=== PATIENT | male | born 1935 | race Caucasian/White ===

== ENCOUNTER → 2016-10-04 | Outpatient (CLI) | payer MEDICARE ==
--- NOTE | 2016-10-04 12:26 | PN ---
DATE OF SERVICE: 10/04/2016 An 81-year-old gentleman who has been [facility] for [facility] of obstructive sleep apnea-hypopnea syndrome. According to patient and his , he is able to use machine every night for the whole night without any significant problems. I checked his CPAP unit. CPAP pressure is 10 cm of water. Usage is 24 out of 30 nights for more than 4 hours. No leak from the mask. Apnea-hypopnea index only 0.8, which is perfect. At the same time, [place] Sleepiness Scale increased to 19 and patient sometimes wakes up from sleep and may have difficulties to fall asleep again. He is on treatment with Mirapex also at bedtime. MEDICATIONS: Prilosec, Plavix, Janumet, Coreg, losartan, Uroxatral, finasteride, Fibercon, Ocuvite with lutein, iron supplement, Claritin, Tessalon, simvastatin, folic acid, aspirin, Christine, multivitamins, Mirapex, Zantac, melatonin, megestrol, nasal spray with ipratropium, bromide, and fluticasone ( ), Dulera, Combigan, Lumigan. During physical exam, patient in no distress. BP 151/79, HR 70, RR 16. Height 5, 7. Weight 161, which is 2 pounds less than during titration in 2015, BMI 25. Neck 15 inches in circumference. Temp is 97.8. Oxygen saturation at room air 98%. Patient is legally blind, right eye prosthesis. LUNGS: Few wheezing. HEART: S1, S2, regular. ABDOMEN: Obese, soft, nontender. EXTREMITIES: 1 to 2+ bilateral ankle edema. IMPRESSION: 1. Obstructive sleep apnea-hypopnea syndrome on control with CPAP at 10 cm of water. Patient demonstrated good compliance with treatment, benefiting from treatment. 2. Hypertension. 3. Coronary artery disease, status post stent insertion, 4. 1 to 2+ swelling of the legs, possible congestive heart failure. 5. Nocturia. 6. Diabetes mellitus. 7. History of iron deficiency anemia. 8. History of kidney stones. 9. Acid reflux. 10. 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 11. History of benign prostatic hypertrophy. PLAN: 1. Continue treatment with CPAP every night for the whole night. 2. Watching weight, present body mass index normal. 3. Sleep hygiene with regular time in bed for at least 8 hours[address] Patient [address] not drive. 5. Prescription of all necessary CPAP supplies, including mask, tubes, filters. He is getting his supplies regularly. Thank you very much for allowing me to participate in the management of your patient. Sincerely, Alvino Patel MD, PhD, FAASM. Diplomat of [employer], Sleep Medicine Board by [employer]sole [employer] Snipping Machine Operator of [facility] [place]
== END | disposition home or self-care (01) ==
LOC: SLEEP 10:57
PROVIDERS: ATTEND Internal Medicine
DX: G47.33 Obstructive sleep apnea (adult) (pediatric) (principal); I10 Essential (primary) hypertension; I25.10 Atherosclerotic heart disease of native coronary artery without angina pectoris; Z94.4 Liver transplant status; M79.89 Other specified soft tissue disorders; E11.9 Type 2 diabetes mellitus without complications; K21.9 Gastro-esophageal reflux disease without esophagitis; Z79.899 Other long term (current) drug therapy; Z79.84 Long term (current) use of oral hypoglycemic drugs; N40.0 Benign prostatic hyperplasia without lower urinary tract symptoms; Z87.442 Personal history of urinary calculi; D64.9 Anemia, unspecified

== ENCOUNTER → 2016-10-17 | Outpatient (CLI) | payer MEDICARE ==
--- NOTE | 2016-10-17 17:00 | CT ---
EXAMINATION TYPE: CT chest wo con DATE OF EXAM: 10/17/2016 COMPARISON: NONE HISTORY: Interstitial lung disease CT DLP: 170 mGycm, Automated exposure control for dose reduction was used. CONTRAST: None TECHNIQUE: Axial images were obtained at 1 mm thick sections at 10 mm intervals. This will limit po rtions of the examination which may not be visualized within the [id number]. Images were obtained in the prone and supine views. Beam hardening artifact from a right shoulder prosthesis causes some limitation. FINDINGS: Portion of the thyroid visualized is normal. There is some interstitial thickening at the left lung base. This may have slight improvement on the prone images suggest a component of atelectasis involve. No enlarged mediastinal or hilar adenopathy is evident. The ascending aorta diameter at the level o f the main pulmonary artery is 4.0 cm. The main pulmonary artery diameter at the bifurcation is 3.4 cm. Coronary artery calcification is present. Limited CT sections are obtained through the upper abdomen. Nonobstructing renal stones are present o n the right. IMPRESSIONS: 1. Interstitial lung changes at the left base greater on the supine imaging. 2. Right nonobstructing renal stones
== END | disposition home or self-care (01) ==
LOC: RADCTMAIN 13:01
PROVIDERS: ATTEND Internal Medicine Critical Care Medicine
DX: J84.9 Interstitial pulmonary disease, unspecified (principal); Z88.5 Allergy status to narcotic agent
CPT/HCPCS: 71250

== ENCOUNTER 2016-11-08 10:06 | Day surgery (SDC) | payer MEDICARE ==
[2016-11-05 12:04] VITALS: BMI 22.4
[~2016-11-08 10:06] MED LIST: ALBUTEROL NEB (CONC) 2.5 MG/0.5 ML INHALATION ONE; ATROPINE SULFATE 0.4 MG/ML 1 ML VIAL IM ONE; LACTATED RINGERS 1,000 ML IV ONE; LACTATED RINGERS 1,000 ML IV SCH; LIDOCAINE 2% (PF) 20 MG/ML 10ML INHALATION ONE
[2016-11-08 10:29] VITALS: TEMP 98.3
[2016-11-08] MEDS ORDERED: LIDOCAINE 1% 20 ML VIAL (10MG/ML) FOR IV START INTRADERMA ONE (10:48)
[2016-11-08 10:51] LABS: Glucose,Whole Blood 122 mg/dL (75-99)
[2016-11-08] MEDS ORDERED: GLYCOPYRROLATE 0.2 MG/ML 2 ML VIAL ONE (11:34)
[2016-11-08] MEDS ORDERED: MIDAZOLAM 2 MG/2 ML VIAL ONE (11:34)
[2016-11-08] MEDS ORDERED: LIDOCAINE 1% INJ 10MG/ML (20 ML MDV) ONE (11:34)
[2016-11-08] MEDS ORDERED: fentaNYL (PF) 50 MCG/ML 2 ML AMP ONE (11:34)
[2016-11-08] MEDS ORDERED: PROPOFOL 10 MG/ML 20 ML VIAL IV ONE (11:34)
[2016-11-08] MEDS ORDERED: KETAMINE 10 MG/ML 20 ML VIAL ONE (11:34)
[2016-11-08] MEDS ORDERED: LIDOCAINE 2% INJ 20 MG/ML INTRATRACH ONE ×2 (11:39→11:42)
[2016-11-08 12:31] VITALS: BP 145/91; PULSE 66; RESP 18
[2016-11-08 12:35] LABS: Glucose,Whole Blood 119 mg/dL (75-99)
[2016-11-08 16:58] LABS: RBC, Body Fluid 9100 /uL
[2016-11-08 17:28] LABS: RBC, Body Fluid 1230 /uL
--- NOTE | 2016-11-09 07:53 | PCN ---
DATE OF PROCEDURE: PROCEDURE: Bronchoscopy, airway examination, therapeutic lavage, BAL. We did BAL in the right middle lobe and also BAL left lower lobe, 2 separate containers. PREOPERATIVE DIAGNOSIS: Pneumonia. POSTOPERATIVE DIAGNOSIS: Pneumonia. The stable cleaner, Carla Perdomo CRNA gave unconscious sedation with general anesthesia. The patient's procedure took place in Room #3. There was informed consent. There was universal timeout. After the patient was adequately sedated and being fully monitored, the bronchoscope was inserted through the right nostril. It passed through the right nasopharynx into the oropharynx. The hypopharynx was identified and topicalized. The hypopharyngeal structures including in the anterior commissures, true cords, false cords, arytenoids, piriform sinuses, right and left vallecula and epiglottis all appear normal. The papilla on the posterior tongue were more prominent. After topicalization, bronchoscope was pushed through the glottic opening into the trachea. Trachea appeared normal. Tracheal jeni was sharp. There were some secretions noted throughout the trachea. They were suctioned. There were no masses or tumors within the trachea. Tracheal jeni was sharp. Right and left mainstem were topicalized. The right upper lobe was bifurcated. The segments looked normal. The right middle lobe had 2 segments and was normal and the right lower lobe had 4 segments as opposed to 5. There was a medial basal bronchopulmonary segment of the right lower lobe missing, but all the segments, otherwise, look normal. There was no dominant mass. There were some secretions. There was mild bronchitis. There was no bleeding. On the left side, the left upper lobe and its 2 segments, the lingula and its 2 segments, and the left lower lobe and its 4 segments all appeared relatively normal. Likewise, there was diffuse bronchitis. There were secretions noted throughout. There was no bleeding. There was no dominant mass or tumor. We did 2 different BAL samples one in the right middle lobe and one in the left lower lobe. The patient tolerated the procedure well. There was no bleeding. Additional secretions were removed with the assistance of saline lavage. The patient tolerated the procedure well. Bronchoscope was withdrawn. He will be recovered. No additional recommendations are made. I will talk to the family.
== END 2016-11-08 12:48 | disposition home or self-care (01) ==
LOC: ORWHC2ENDO 10:06
PROVIDERS: ATTEND Internal Medicine Critical Care Medicine
DX: J18.9 Pneumonia, unspecified organism (principal); J44.9 Chronic obstructive pulmonary disease, unspecified; I05.9 Rheumatic mitral valve disease, unspecified; Z87.891 Personal history of nicotine dependence; I10 Essential (primary) hypertension; E78.5 Hyperlipidemia, unspecified; Z95.5 Presence of coronary angioplasty implant and graft; J44.1 Chronic obstructive pulmonary disease with (acute) exacerbation; Z79.84 Long term (current) use of oral hypoglycemic drugs; Z79.02 Long term (current) use of antithrombotics/antiplatelets; Z79.82 Long term (current) use of aspirin; Z79.51 Long term (current) use of inhaled steroids; Z79.52 Long term (current) use of systemic steroids; Z79.899 Other long term (current) drug therapy; Z88.5 Allergy status to narcotic agent
CPT/HCPCS: 94640; 88108; 88305; 89050; 87252; 87070; 87205; 87116; 87102; 87077; 87186; 87206; 31624; J2001 ×3; J2250; J0461; J3010; J2704; 87496; 87498; 87502; 87529; 87798

== ENCOUNTER 2016-12-27 16:27 | Emergency (ER) | payer MEDICARE ==
[2016-12-27 17:26] LABS: ALT 23 U/L (21-72); AST 64 U/L (17-59); Alkaline Phosphatase 59 U/L (38-126); Anion Gap 12 mmol/L; Blood Urea Nitrogen 25 mg/dL (9-20); Carbon Dioxide 21 mmol/L (22-30); Chloride 102 mmol/L (98-107); Creatine Kinase 94 U/L (55-170); Glucose 117 mg/dL (74-99); Non-African American GFR(MDRD) >60 (>60 ml/min/1.73 sqM); Sodium 135 mmol/L (137-145); Total Bilirubin 1.3 mg/dL (0.2-1.3); Total Protein 6.9 g/dL (6.3-8.2)
[2016-12-27 17:35] LABS: Potassium 6.4 mmol/L (3.5-5.1)
[2016-12-27 17:45] LABS: Anisocytosis Slight; Aty Lym Flag Slight; CH 25.9; CHCM 30.4; HCT 29.2 % (39.0-53.0); HDW 3.01; Hypochromasia Marked; MCH 26.2 pg (25.0-35.0); MCHC 30.8 g/dL (31.0-37.0); MCV 85.2 fL (80.0-100.0); Mean Platelet Volume 9.6; RBC 3.43 m/uL (4.30-5.90); RDW 17.9 % (11.5-15.5); WBC 6.2 k/uL (3.8-10.6); WBC (Perox) 6.54
[2016-12-27 18:03] LABS: Add Differential Manual Differential
[2016-12-27 18:06] LABS: Nucleated Red Blood Cells 0 /100 WBC (0-0); Total Cells Counted 100
[2016-12-27 18:14] LABS: Vitamin B12 475 pg/mL
--- NOTE | 2016-12-27 18:28 | ED ---
General Adult HPI - General Chief complaint: Recheck/Abnormal Lab/Rx Stated complaint: BROUGHT OVER FROM CT FOR ABNORMAL BLOODWORK Time Seen by Provider: 12/27/16 18:19 Source: patient, RN notes reviewed Mode of arrival: wheelchair Limitations: no limitations - History of Present Illness Initial comments: 81-year-old male presents to the emergency department for abnormal blood work. Patient was here due to the patient having multiple falls over the last few weeks and off balance. He went in for a CAT scan. Blood work and he was found to have a high potassium so he was sent over to the emergency department. Patient has no complaints he has no pain at this time. They state that the head injury was 2 weeks ago. They state that the doctors currently working up him for possible Parkinson's causing The falls they just wanted to rule out any acute head injury. The patient has no headache at this time. He denies any chest pain or shortness of breath. - Related Data Home Medications Medication Instructions Recorded Confirmed Alfuzosin HCl [Uroxatral] 10 mg PO DAILY 11/27/13 11/08/16 Aspirin [Aspirin] 81 mg PO W/SUPPER 11/27/13 11/08/16 Bimatoprost [Lumigan] 1 drop LEFT EYE HS 11/27/13 11/08/16 Brimonidine Tartrate/Timolol 1 drop LEFT EYE BID 11/27/13 11/08/16 [Combigan Eye Drops] Carvedilol [Coreg] 12.5 mg PO BID 11/27/13 11/08/16 Folic Acid 1 mg PO W/SUPPER 11/27/13 11/08/16 Simvastatin [Zocor] 10 mg PO MOWEFR 11/27/13 11/08/16 Losartan [Cozaar] 25 mg PO DAILY 12/14/13 11/08/16 Magnesium Oxide [Mag-Ox] 400 mg PO DAILY PRN 12/14/13 11/08/16 Potassium Chloride [K-Tab] 10 meq PO DAILY PRN 12/14/13 11/08/16 Clopidogrel [Plavix] 75 mg PO DAILY 06/04/14 11/08/16 Megestrol [Megace] 10 ml PO MOWEFR 06/04/14 11/08/16 Omeprazole [PriLOSEC] 20 mg PO AC-BRKFST 06/04/14 11/08/16 sitaGLIPtin PHOS/metFORMIN HCL 1 tab PO BID 06/04/14 11/08/16 [Janumet 50-500 mg Tablet] riTUXimab [Rituxan] 1 applicate IV DIRECTED 06/18/14 11/08/16 Finasteride [Proscar] 5 mg PO DAILY 04/18/15 11/08/16 Multivitamins, Thera [Multivitamin] 1 tab PO DAILY 06/16/15 11/08/16 Vits A,C,E/Lutein/Minerals 1 each PO DAILY 06/16/15 11/08/16 [Ocuvite with Lutein Tablet] Calcium Polycarbophil [Fibercon] 625 mg PO QAM 11/05/16 11/08/16 Epoetin Az [Procrit] 0 unit IJ DIRECTED 11/05/16 11/08/16 Ferrous Sulfate [Feosol] 2 tab PO DAILY 11/05/16 11/08/16 Furosemide [Lasix] 20 mg PO DAILY PRN 11/05/16 11/08/16 Melatonin 5 mg PO 199911/05/16 11/08/16 Pramipexole Di-HCl [Mirapex] 1 mg PO 199911/05/16 11/08/16 Ranitidine HCl [Zantac] 150 mg PO W/SUPPER 11/05/16 11/08/16 Allergies Allergy/AdvReac Type Severity Reaction Status Date / Time codeine AdvReac Nausea & Verified 12/27/16 18:14 Vomiting & Diarrhea Review of Systems ROS Statement: Those systems with pertinent positive or pertinent negative responses have been documented in the HPI. ROS Other: All systems not noted in ROS Statement are negative. 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, uses cane, inflammatory arthritis, gets edema ankles, chornic productive cough, rash on and off on arms and stomach, History of Any Multi-Drug Resistant Organisms: None Reported Past Surgical History: Adenoidectomy, Heart Catheterization With Stent, Joint Replacement, Tonsillectomy Additional Past Surgical History / Comment(s): right shoulder replacement, removal of rt eye(prosthesis used) Past Anesthesia/Blood Transfusion Reactions: No Reported Reaction Date of Last Stent Placement:: 03/2014 Past Psychological History: No Psychological Hx Reported Smoking Status: Former smoker - Past Family History Sister(s) Family Medical History: Cancer General Exam Limitations: no limitations General appearance: alert, in no apparent distress Head exam: Present: atraumatic, normocephalic, normal inspection Eye exam: Present: normal appearance, PERRL (Of the left), EOMI (Of the left the left) ENT exam: Present: normal exam, mucous membranes moist Neck exam: Present: normal inspection. Absent: tenderness, meningismus, lymphadenopathy Respiratory exam: Present: normal lung sounds bilaterally. Absent: respiratory distress, wheezes, rales, rhonchi, stridor Cardiovascular Exam: Present: regular rate, normal rhythm, normal heart sounds. Absent: rubs, gallop, clicks Neurological exam: Present: alert, oriented X3, CN II-XII intact, reflexes normal. Absent: motor sensory deficit Psychiatric exam: Present: normal affect, normal mood Skin exam: Present: warm, dry, intact, normal color. Absent: rash Course Vital Signs 12/27/16 12/27/16 12/27/16 18:14 18:51 19:11 Temperature 96.5 F L 97.9 F Pulse Rate 71 79 82 Respiratory 16 18 18 Rate Blood Pressure 178/81 172/83 174/103 O2 Sat by Pulse 99 98 96 Oximetry 12/27/16 19:25 Temperature 98.6 F Pulse Rate 85 Respiratory 18 Rate Blood Pressure 172/79 O2 Sat by Pulse 94 L Oximetry - Reevaluation(s) Reevaluation #1: 12/27/16 19:29 Patient's blood pressure was evaluated. It is elevated at this time. He is due for his nighttime blood pressure medications. This time family states they' ll take him in the home. We did discuss follow-up for his blood pressure. EKG Findings - EKG Comments: EKG Findings:: Sinus rhythm with marked sinus arrhythmia with the mature supraventricular complexes, left anterior fascicular block, ventricular rate 80 , UT interval 22, peak T waves nonobserved Medical Decision Making - Medical Decision Making 81-year-old male presents to the emergency Department chief complaint of hyperkalemia. At this time patient's repeat potassium is 4.7. EKG is no acute changes. There is blood and urine as well as the patient is anemic which are chronic findings according to family. We did reeducate him about follow-up on these initial lab findings there they stated they understood and they are given plan. Patient has no complaints this time. Scalp patient was does not show any acute intracranial process. This and the patient will be discharged home. All questions have been answered. - Lab Data Result diagrams: 12/27/16 16:55 12/27/16 18:46 Lab Results 12/27/16 12/27/16 12/27/16 Range/Units 16:55 16:55 18:46 WBC 6.2 (3.8-10.6) k/uL RBC 3.43 L (4.30-5.90) m/uL Hgb 9.0 L (13.0-17.5) gm/dL Hct 29.2 L (39.0-53.0) % MCV 85.2 (80.0-100.0) fL MCH 26.2 (25.0-35.0) pg MCHC 30.8 L (31.0-37.0) g/dL RDW 17.9 H (11.5-15.5) % Plt Count 318 (150-450) k/uL Neutrophils % (Manual) 59 % Lymphocytes % (Manual) 25 % Monocytes % (Manual) 16 % Neutrophils # (Manual) 3.66 (1.3-7.7) k/uL Lymphocytes # (Manual) 1.55 (1.0-4.8) k/uL Monocytes # (Manual) 0.99 (0-1.0) k/uL Nucleated RBCs 0 (0-0) /100 WBC Hypochromasia Marked Anisocytosis Slight Sodium 135 L (137-145) mmol/L Potassium 6.4 H* 4.7 (3.5-5.1) mmol/L Chloride 102 (98-107) mmol/L Carbon Dioxide 21 L (22-30) mmol/L Anion Gap 12 mmol/L BUN 25 H (9-20) mg/dL Creatinine 1.00 (0.66-1.25) mg/dL Est GFR (MDRD) Af Amer >60 (>60 ml/min/1.73 sqM) Est GFR (MDRD) Non-Af >60 (>60 ml/min/1.73 sqM) Glucose 117 H (74-99) mg/dL Calcium 9.0 (8.4-10.2) mg/dL Total Bilirubin 1.3 (0.2-1.3) mg/dL AST 64 H (17-59) U/L ALT 23 (21-72) U/L Alkaline Phosphatase 59 (38-126) U/L Creatine Kinase 94 (55-170) U/L Total Protein 6.9 (6.3-8.2) g/dL Albumin 4.6 (3.5-5.0) g/dL Vitamin B12 475 pg/mL TSH 0.701 (0.465-4.680) mIU/L Free T4 1.32 (0.78-2.19) ng/dL Urine Color Urine Appearance (Clear) Urine pH (5.0-8.0) Ur Specific Mckittrick (1.001-1.035) Urine Protein (Negative) Urine Glucose (UA) (Negative) Urine Ketones (Negative) Urine Blood (Negative) Urine Nitrite (Negative) Urine Bilirubin (Negative) Urine Urobilinogen (<2.0) mg/dL Ur Leukocyte Esterase (Negative) Urine RBC (0-5) /hpf Urine WBC (0-5) /hpf Ur Squamous Epith Cells (0-4) /hpf Urine Mucus (None) /hpf 12/27/16 Range/Units 18:46 WBC (3.8-10.6) k/uL RBC (4.30-5.90) m/uL Hgb (13.0-17.5) gm/dL Hct (39.0-53.0) % MCV (80.0-100.0) fL MCH (25.0-35.0) pg MCHC (31.0-37.0) g/dL RDW (11.5-15.5) % Plt Count (150-450) k/uL Neutrophils % (Manual) % Lymphocytes % (Manual) % Monocytes % (Manual) % Neutrophils # (Manual) (1.3-7.7) k/uL Lymphocytes # (Manual) (1.0-4.8) k/uL Monocytes # (Manual) (0-1.0) k/uL Nucleated RBCs (0-0) /100 WBC Hypochromasia Anisocytosis Sodium (137-145) mmol/L Potassium (3.5-5.1) mmol/L Chloride (98-107) mmol/L Carbon Dioxide (22-30) mmol/L Anion Gap mmol/L BUN (9-20) mg/dL Creatinine (0.66-1.25) mg/dL Est GFR (MDRD) Af Amer (>60 ml/min/1.73 sqM) Est GFR (MDRD) Non-Af (>60 ml/min/1.73 sqM) Glucose (74-99) mg/dL Calcium (8.4-10.2) mg/dL Total Bilirubin (0.2-1.3) mg/dL AST (17-59) U/L ALT (21-72) U/L Alkaline Phosphatase (38-126) U/L Creatine Kinase (55-170) U/L Total Protein (6.3-8.2) g/dL Albumin (3.5-5.0) g/dL Vitamin B12 pg/mL TSH (0.465-4.680) mIU/L Free T4 (0.78-2.19) ng/dL Urine Color Yellow Urine Appearance Clear (Clear) Urine pH 6.5 (5.0-8.0) Ur Specific Mckitt[place] 1.024 (1.001-1.035) Urine Protein 1+ H (Negative) Urine Glucose (UA) Negative (Negative) Urine Ketones Negative (Negative) Urine Blood Small H (Negative) Urine Nitrite Negative (Negative) Urine Bilirubin Negative (Negative) Urine Urobilinogen <2.0 (<2.0) mg/dL Ur Leukocyte Esterase Negative (Negative) Urine RBC 25 H (0-5) /hpf Urine WBC 2 (0-5) /hpf Ur Squamous Epith Cells <1 (0-4) /hpf Urine Mucus Rare H (None) /hpf Disposition Clinical Impression: Chronic anemia, Hematuria Disposition: HOME SELF-CARE Condition: Stable Instructions: Anemia (ED) Additional Instructions: Please use medication as discussed. Please follow up with family doctor if symptoms have not improved over the next two days. Please return to the emergency room if your symptoms increase or worsen or for any other concerns. Referrals: Kaitlin Hassan MD [Primary Care Provider] - 1-2 days Time of Disposition: 19:29
--- NOTE | 2016-12-27 18:30 | CT ---
EXAMINATION TYPE: CT brain w con DATE OF EXAM: 12/27/2016 COMPARISON: CT 11/04/2012 HISTORY: Chronic false with head injury CT DLP: 988 mGycm. Automated exposure control for dose reduction was used. CONTRAST: CT scan of the head is performed; patient injected with 100 mL of Omnipaque 300. FINDINGS: There is no abnormal enhancing mass or midline shift identified. There is no definite new attenuation defect. There is prominent encephalomalacia within the left cere bellar hemisphere, corresponding to the vascular territory of the left posterior inferior cerebellar artery, consistent with remote infarction. This was seen on the prior study of November 04, 2012. There is no fracture or evidence of hemorrhage. The ventricles and sulci are within normal limits in size. No abnormal fluid collections. The globes are unremarkable. The bilateral maxillary sinuses are nearly entirely opacified with fluid and high attenuation materia l, consistent with a clinical diagnosis of subacute and/or chronic maxillary sinusitis. The high atte nuation suggests the possibility of fungal etiology. Remainder of the maxillary sinuses are clear. Th e middle ear cavities and mastoid sinus air cells are clear. IMPRESSION: 1. NO ACUTE CRANIAL/INTRACRANIAL PROCESS, CONTRAST ENHANCED HEAD CT EXAM. 2. BILATERAL MAXILLARY SINUS FINDINGS DISCUSSED.
[2016-12-27 18:53] VITALS: RESP 18
[2016-12-27 19:02] LABS: Appearance,Urine Clear (Clear); Bilirubin,Urine Negative (Negative); Glucose,Urine (UA) Negative (Negative); Ketones,Urine Negative (Negative); Leukocyte Esterase,Urine Negative (Negative); Mucus,Urine Rare /hpf; Nitrite,Urine Negative (Negative); PH, Urine 6.5 (5.0-8.0); Particle Count 816; Protein,Urine 1+ (Negative); RBC,Urine 25 /hpf (0-5); Specific Gravity,Urine 1.024 (1.001-1.035); Squamous Epithelial Cell,Urine <1 /hpf (0-4); UA Billing (MACRO vs. MICRO) MICRO; Urobilinogen,Urine <2.0 mg/dL (<2.0); WBC,Urine 2 /hpf (0-5)
[2016-12-27 19:25] VITALS: BP 172/79; PULSE 85; TEMP 98.6
== END 2016-12-27 19:59 | disposition home or self-care (01) ==
LOC: RADCTMAIN 16:27 → EC 16:27 → EDSTATUS 17:20 → EC 19:59
DX: D63.8 Anemia in other chronic diseases classified elsewhere (principal); R31.9 Hematuria, unspecified; I25.10 Atherosclerotic heart disease of native coronary artery without angina pectoris; J44.9 Chronic obstructive pulmonary disease, unspecified; E11.9 Type 2 diabetes mellitus without complications; I10 Essential (primary) hypertension; Z86.73 Personal history of transient ischemic attack (TIA), and cerebral infarction without residual deficits; Z87.891 Personal history of nicotine dependence; Z79.01 Long term (current) use of anticoagulants; Z79.899 Other long term (current) drug therapy; Z79.82 Long term (current) use of aspirin; Z88.5 Allergy status to narcotic agent
CPT/HCPCS: 93005; 84439; 80053; 82607; 82550; 84132; 84443; 85025; 81001; 87086; 70460; 36415; 99284; Q9967

== ENCOUNTER 2017-01-14 18:23 | Inpatient (IN) | payer MEDICARE ==
--- NOTE | 2017-01-14 18:38 | ED ---
Fall HPI - General Source: patient, RN notes reviewed Mode of arrival: wheelchair Limitations: no limitations <Goran Munoz - Last Filed: 01/14/17 21:44> <Marino Haque - Last Filed: 01/14/17 22:16> - General Chief Complaint: Fall Stated Complaint: fall Time Seen by Provider: 01/14/17 18:30 - History of Present Illness Initial Comments: 81-year-old male presents emergency Department chief complaint slip and fall. Patient states that he is visually impaired and states that he tripped falling on his side. Patient states he has right rib pain. Patient states his happened approximately one hour ago. He states that he fell onto a dog cage. Patient denies any head injury no LOC. Denies any upper extremity or lower extremity injuries. Denies any neck, back pain. He has no shortness of breath no chest pain no abdominal pain denies any nausea, vomiting diarrhea constipation. (Goran Munoz) - Related Data Home Medications Medication Instructions Recorded Confirmed Alfuzosin HCl [Uroxatral] 10 mg PO DAILY 11/27/13 01/14/17 Aspirin [Aspirin] 81 mg PO W/SUPPER 11/27/13 01/14/17 Bimatoprost [Lumigan] 1 drop LEFT EYE HS 11/27/13 01/14/17 Brimonidine Tartrate/Timolol 1 drop LEFT EYE BID 11/27/13 01/14/17 [Combigan Eye Drops] Carvedilol [Coreg] 12.5 mg PO BID 11/27/13 01/14/17 Folic Acid 1 mg PO W/SUPPER 11/27/13 01/14/17 Simvastatin [Zocor] 10 mg PO MOWEFR 11/27/13 01/14/17 Losartan [Cozaar] 25 mg PO DAILY 12/14/13 01/14/17 Magnesium Oxide [Mag-Ox] 400 mg PO DAILY PRN 12/14/13 01/14/17 Potassium Chloride [K-Tab] 10 meq PO DAILY PRN 12/14/13 01/14/17 Clopidogrel [Plavix] 75 mg PO DAILY 06/04/14 01/14/17 Megestrol [Megace] 10 ml PO MOWEFR 06/04/14 01/14/17 Omeprazole [PriLOSEC] 20 mg PO AC-BRKFST 06/04/14 01/14/17 sitaGLIPtin PHOS/metFORMIN HCL 1 tab PO BID 06/04/14 01/14/17 [Janumet 50-500 mg Tablet] riTUXimab [Rituxan] 1 dose IV Q150D 06/18/14 01/14/17 Finasteride [Proscar] 5 mg PO DAILY 04/18/15 01/14/17 Multivitamins, Thera [Multivitamin] 1 tab PO DAILY 06/16/15 01/14/17 Vits A,C,E/Lutein/Minerals 1 tab PO DAILY 06/16/15 01/14/17 [Ocuvite with Lutein Tablet] Calcium Polycarbophil [Fibercon] 625 mg PO QAM 11/05/16 01/14/17 Epoetin Az [Procrit] 1 dose IJ Q14D 11/05/16 01/14/17 Ferrous Sulfate [Feosol] 2 tab PO DAILY 11/05/16 01/14/17 Furosemide [Lasix] 20 mg PO DAILY PRN 11/05/16 01/14/17 Melatonin 5 mg PO HS 11/05/16 01/14/17 Pramipexole Di-HCl [Mirapex] 1 mg PO HS 11/05/16 01/14/17 Allergies Allergy/AdvReac Type Severity Reaction Status Date / Time codeine AdvReac Nausea & Verified 01/14/17 19:12 Vomiting & Diarrhea Review of Systems ROS Other: All systems not noted in ROS Statement are negative. <Goran Munoz - Last Filed: 01/14/17 21:44> ROS Other: All systems not noted in ROS Statement are negative. <Marino Haque - Last Filed: 01/14/17 22:16> ROS Statement: Those systems with pertinent positive or pertinent negative responses have been documented in the HPI. 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, uses cane, inflammatory arthritis, gets edema ankles, chornic productive cough, rash on and off on arms and stomach, History of Any Multi-Drug Resistant Organisms: None Reported Past Surgical History: Adenoidectomy, Heart Catheterization With Stent, Joint Replacement, Tonsillectomy Additional Past Surgical History / Comment(s): right shoulder replacement, removal of rt eye(prosthesis used) Past Anesthesia/Blood Transfusion Reactions: No Reported Reaction Date of Last Stent Placement:: 03/2014 Past Psychological History: No Psychological Hx Reported Smoking Status: Former smoker - Past Family History Sister(s) Family Medical History: Cancer <Goran Munoz - Last Filed: 01/14/17 21:44> General Exam Limitations: no limitations General appearance: alert, in no apparent distress Head exam: Present: atraumatic, normocephalic, normal inspection Neck exam: Present: normal inspection, full ROM. Absent: tenderness, meningismus, lymphadenopathy Respiratory exam: Present: normal lung sounds bilaterally, chest wall tenderness (Moderate anterolateral rib tenderness on the right). Absent: respiratory distress, wheezes, rales, rhonchi, stridor Cardiovascular Exam: Present: regular rate, normal rhythm, normal heart sounds. Absent: systolic murmur, diastolic murmur, rubs, gallop, clicks GI/Abdominal exam: Present: soft, normal bowel sounds. Absent: distended, tenderness, guarding, rebound, rigid Extremities exam: Present: normal inspection, full ROM, normal capillary refill , pedal edema (Minimal ). Absent: tenderness, joint swelling, calf tenderness Back exam: Present: full ROM. Absent: tenderness Skin exam: Present: warm, dry, intact, normal color. Absent: rash <Goran Munoz - Last Filed: 01/14/17 21:44> Medical Decision Making - Lab Data Result diagrams: 01/14/17 20:10 01/14/17 20:10 <Goran Munoz - Last Filed: 01/14/17 21:44> - Lab Data Result diagrams: 01/14/17 20:10 01/14/17 20:10 <Marino Haque - Last Filed: 01/14/17 22:16> - Medical Decision Making I saw this patient in conjunction with the physician fundraising assistant. I performed independent history and physical exam. Agree with case management. (Marino Haque) - Lab Data Lab Results 01/14/17 01/14/17 01/14/17 Range/Units 20:10 20:10 20:10 WBC 20.4 H (3.8-10.6) k/uL RBC 3.57 L (4.30-5.90) m/uL Hgb 9.3 L (13.0-17.5) gm/dL Hct 29.3 L (39.0-53.0) % MCV 82.2 (80.0-100.0) fL MCH 26.1 (25.0-35.0) pg MCHC 31.8 (31.0-37.0) g/dL RDW 18.9 H (11.5-15.5) % Plt Count 289 (150-450) k/uL Neutrophils % (Manual) 72 % Band Neutrophils % 10 % Lymphocytes % (Manual) 11 % Monocytes % (Manual) 7 % Neutrophils # (Manual) 16.70 H (1.3-7.7) k/uL Lymphocytes # (Manual) 2.24 (1.0-4.8) k/uL Monocytes # (Manual) 1.43 H (0-1.0) k/uL Nucleated RBCs 0 (0-0) /100 WBC Manual Slide Review Performed Large Platelets Present Poikilocytosis (manual Present Anisocytosis Slight Microcytosis Slight Sodium 126 L (137-145) mmol/L Potassium 4.5 (3.5-5.1) mmol/L Chloride 92 L (98-107) mmol/L Carbon Dioxide 25 (22-30) mmol/L Anion Gap 9 mmol/L BUN 21 H (9-20) mg/dL Creatinine 1.12 (0.66-1.25) mg/dL Est GFR (MDRD) Af Amer >60 (>60 ml/min/1.73 sqM) Est GFR (MDRD) Non-Af >60 (>60 ml/min/1.73 sqM) Glucose 122 H (74-99) mg/dL Plasma Lactic Acid Jacques (0.7-2.0) mmol/L Calcium 8.4 (8.4-10.2) mg/dL NT-Pro-B Natriuret Pep 3640 pg/mL 01/14/17 Range/Units 21:00 WBC (3.8-10.6) k/uL RBC (4.30-5.90) m/uL Hgb (13.0-17.5) gm/dL Hct (39.0-53.0) % MCV (80.0-100.0) fL MCH (25.0-35.0) pg MCHC (31.0-37.0) g/dL RDW (11.5-15.5) % Plt Count (150-450) k/uL Neutrophils % (Manual) % Band Neutrophils % % Lymphocytes % (Manual) % Monocytes % (Manual) % Neutrophils # (Manual) (1.3-7.7) k/uL Lymphocytes # (Manual) (1.0-4.8) k/uL Monocytes # (Manual) (0-1.0) k/uL Nucleated RBCs (0-0) /100 WBC Manual Slide Review Large Platelets Poikilocytosis (manual Anisocytosis Microcytosis Sodium (137-145) mmol/L Potassium (3.5-5.1) mmol/L Chloride (98-107) mmol/L Carbon Dioxide (22-30) mmol/L Anion Gap mmol/L BUN (9-20) mg/dL Creatinine (0.66-1.25) mg/dL Est GFR (MDRD) Af Amer (>60 ml/min/1.73 sqM) Est GFR (MDRD) Non-Af (>60 ml/min/1.73 sqM) Glucose (74-99) mg/dL Plasma Lactic Acid Jacques 0.6 L (0.7-2.0) mmol/L Calcium (8.4-10.2) mg/dL NT-Pro-B Natriuret Pep pg/mL Disposition <Goran Munoz - Last Filed: 01/14/17 21:44> <Marino Haque - Last Filed: 01/14/17 22:16> Clinical Impression: Bilateral pneumonia, Fall, Rib fracture Disposition: ADMITTED IP TO THIS HOSP Condition: Fair
--- NOTE | 2017-01-14 19:19 | XR ---
EXAMINATION TYPE: XR ribs RT w pa chest xray DATE OF EXAM: 01/14/2017 COMPARISON: NONE HISTORY: Rib pain TECHNIQUE: 5 views FINDINGS: Heart is enlarged. There is no pneumothorax. Right lung is clear of consolidation. There is a right shoulder prosthesis. There is increased density at the right cardiac border probably due to right middle lobe consolidation and atelectasis. There is nondisplaced fracture anterior right seventh rib. There is some pneumonic infiltrate in the left lower lobe.. IMPRESSION: Right seventh rib fracture. No pneumothorax. Cardiomegaly. Bilateral left lower lobe and right middle lobe pulmonary infiltrates and atelectasis.
[2017-01-14] MEDS ORDERED: PIPERACILLIN-TAZOBACTAM 3.375 GM in DEXTROSE/WATER 1 50ML.BAG IVPB STA (19:31)
[2017-01-14] MEDS ORDERED: LEVOFLOXACIN 750MG-D5W PMX 750 MG in DEXTROSE/WATER 1 150ML.BAG IVPB STA ×2 (19:31→21:45)
[2017-01-14] MEDS ORDERED: SODIUM CHLORIDE 0.9% 1,000 ML IV STA (20:37)
[2017-01-14] MEDS ORDERED: ACETAMINOPHEN TAB 500 MG TAB PO STA ×2 (20:40→20:42)
[2017-01-14 20:50] LABS: Anisocytosis Slight; CH 27.4; CHCM 33.5; HCT 29.3 % (39.0-53.0); HDW 3.07; HGB 9.3 gm/dL (13.0-17.5); MCH 26.1 pg (25.0-35.0); MCHC 31.8 g/dL (31.0-37.0); MCV 82.2 fL (80.0-100.0); Mean Platelet Volume 9.1; Microcytosis Slight; RBC 3.57 m/uL (4.30-5.90); RDW 18.9 % (11.5-15.5); WBC 20.4 k/uL (3.8-10.6)
[2017-01-14 20:58] LABS: Anion Gap 9 mmol/L; Blood Urea Nitrogen 21 mg/dL (9-20); Calcium 8.4 mg/dL (8.4-10.2); Carbon Dioxide 25 mmol/L (22-30); Chloride 92 mmol/L (98-107); Glucose 122 mg/dL (74-99); Non-African American GFR(MDRD) >60 (>60 ml/min/1.73 sqM); Potassium 4.5 mmol/L (3.5-5.1); Sodium 126 mmol/L (137-145)
[2017-01-14 21:09] LABS: Add Differential Manual Differential
[2017-01-14 21:11] LABS: Band Neutrophils % 10 %; Nucleated Red Blood Cells 0 /100 WBC (0-0); Total Cells Counted 100
[2017-01-14 21:12] LABS: Large Platelets Present; Manual Review Performed
[2017-01-14] MEDS ORDERED: PNEUMONIA PROTOCOL UTILIZED 1 EACH MISC PO PRN (21:45)
[2017-01-14] MEDS: IPRATROPIUM-ALBUTEROL 3 ML NEB INHALATION PRN (22:03)
[2017-01-14] MEDS ORDERED: EPOETIN ALFA IJ SCH (23:30)
[2017-01-14] MEDS ORDERED: MEGESTROL 400 MG/10 ML CUP PO SCH (23:30)
[2017-01-14] MEDS ORDERED: RITUXIMAB 10 MG/ML IV SCH (23:30)
[2017-01-14] MEDS ORDERED: MAGNESIUM OXIDE 400 MG TAB PO PRN (23:30)
[2017-01-15] MEDS: PIPERACILLIN-TAZOBACTAM 3.375 GM in DEXTROSE/WATER 1 50ML.BAG IVPB SCH ×4 (00:29→23:45)
[2017-01-15] MEDS: ATORVASTATIN 10 MG TAB PO SCH (00:30)
[2017-01-15] MEDS: BRIMONIDINE TARTRATE 0.2% DROPS 5 ML BTL LEFT EYE SCH ×3 (00:31→20:51)
[2017-01-15] MEDS: LATANOPROST 0.005% OPHTH DROPS 2.5 ML BTL LEFT EYE SCH ×2 (00:31→20:52)
[2017-01-15] MEDS: MELATONIN 5 MG TABLET PO SCH ×2 (00:32→20:52)
[2017-01-15] MEDS: PRAMIPEXOLE 1 MG TAB PO SCH ×2 (00:32→20:52)
[2017-01-15 07:35] LABS: Glucose,Whole Blood 134 mg/dL (75-99)
[2017-01-15] MEDS: INSULIN LISPRO (humaLOG) 300 UNIT/3 ML VIAL SQ SCH ×4 (07:51→20:50)
[2017-01-15] MEDS ORDERED: FUROSEMIDE 20 MG TAB PO SCH (09:00)
[2017-01-15] MEDS: PANTOPRAZOLE 40 MG TABLET PO SCH (09:17)
[2017-01-15] MEDS: CALCIUM POLYCARBOPHIL 625 MG TAB PO SCH (09:18)
[2017-01-15] MEDS: FERROUS SULFATE 325 MG TAB PO SCH (09:19)
[2017-01-15] MEDS: CARVEDILOL 12.5 MG TAB PO SCH ×2 (09:19→20:53)
[2017-01-15] MEDS: CLOPIDOGREL 75 MG TAB PO SCH (09:19)
[2017-01-15] MEDS: FINASTERIDE 5 MG TAB PO SCH (09:20)
[2017-01-15] MEDS: HEPARIN SODIUM,PORCINE 5,000 UNIT/ML 1 ML VIAL SQ SCH ×2 (09:20→20:52)
[2017-01-15] MEDS: LINAGLIPTIN 5 MG TABLET PO SCH ×2 (09:21→20:53)
[2017-01-15] MEDS: LOSARTAN 25 MG TAB PO SCH (09:21)
[2017-01-15] MEDS: metFORMIN 500 MG TAB PO SCH ×2 (09:21→20:53)
[2017-01-15] MEDS: MULTIVITAMINS, THERA 1 EACH TAB PO SCH (09:23)
[2017-01-15] MEDS: POTASSIUM CHLORIDE ER 10 MEQ TAB.ER.PRT PO SCH (09:23)
[2017-01-15] MEDS: VIT A,C & E-LUTEIN-MINERALS 1 EACH TAB PO SCH (09:24)
[2017-01-15] MEDS: TIMOLOL 0.5% OPHTH DROPS 5 ML BTL LEFT EYE SCH ×2 (09:24→20:52)
[2017-01-15] MEDS: TAMSULOSIN 0.4 MG CAP.ER.24H PO SCH (09:24)
[2017-01-15] MEDS ORDERED: FUROSEMIDE 10 MG/ML 4 ML VIAL IV STA (09:50)
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
[2017-01-15] MEDS: IPRATROPIUM-ALBUTEROL 3 ML NEB INHALATION PRN (11:17)
[2017-01-15 11:36] LABS: Hemoglobin A1C 5.7 % (4.2-6.1)
[2017-01-15] MEDS: ACETAMINOPHEN TAB 325 MG TAB PO PRN ×2 (11:55→16:31)
[2017-01-15 12:01] LABS: Glucose,Whole Blood 163 mg/dL (75-99)
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
--- NOTE | 2017-01-15 12:52 | XR ---
EXAMINATION TYPE: XR chest 2V DATE OF EXAM: 01/15/2017 COMPARISON: 10/08/2016 TECHNIQUE: PA and lateral views submitted. HISTORY: Pneumonia FINDINGS: Bilateral infiltrate and pleural effusion seen. Arthropathy shoulders with postsurgical change right shoulder. No pneumothorax or overt failure. Hypertrophic change of the spine and cardiomegaly noted. Hyperinflation suggests COPD. IMPRESSION: 1. Bilateral lower lobe infiltrate and small effusion.
[2017-01-15] MEDS: ASPIRIN 81 MG CHEW PO SCH (17:19)
[2017-01-15] MEDS: FOLIC ACID 1 MG TAB PO SCH (17:19)
[2017-01-15 17:38] LABS: Glucose,Whole Blood 159 mg/dL (75-99)
[2017-01-15 20:56] LABS: Glucose,Whole Blood 168 mg/dL (75-99)
[2017-01-15] MEDS ORDERED: LEVOFLOXACIN 750MG-D5W PMX 750 MG in DEXTROSE/WATER 1 150ML.BAG IVPB SCH (21:00)
[2017-01-16] MEDS: ACETAMINOPHEN TAB 325 MG TAB PO PRN (07:36)
[2017-01-16] MEDS: INSULIN LISPRO (humaLOG) 300 UNIT/3 ML VIAL SQ SCH ×4 (07:36→21:35)
[2017-01-16 07:37] LABS: Glucose,Whole Blood 140 mg/dL (75-99)
[2017-01-16] MEDS: BRIMONIDINE TARTRATE 0.2% DROPS 5 ML BTL LEFT EYE SCH ×2 (07:37→20:14)
[2017-01-16] MEDS: PIPERACILLIN-TAZOBACTAM 3.375 GM in DEXTROSE/WATER 1 50ML.BAG IVPB SCH ×3 (07:37→23:18)
[2017-01-16] MEDS: PANTOPRAZOLE 40 MG TABLET PO SCH (07:37)
[2017-01-16] MEDS: CALCIUM POLYCARBOPHIL 625 MG TAB PO SCH (07:38)
[2017-01-16] MEDS: CARVEDILOL 12.5 MG TAB PO SCH ×2 (07:38→20:13)
[2017-01-16] MEDS: CLOPIDOGREL 75 MG TAB PO SCH (07:38)
[2017-01-16] MEDS: FUROSEMIDE 40 MG TAB PO SCH (07:39)
[2017-01-16] MEDS: HEPARIN SODIUM,PORCINE 5,000 UNIT/ML 1 ML VIAL SQ SCH ×2 (07:39→20:14)
[2017-01-16] MEDS: FERROUS SULFATE 325 MG TAB PO SCH (07:39)
[2017-01-16] MEDS: FINASTERIDE 5 MG TAB PO SCH (07:39)
[2017-01-16] MEDS: LOSARTAN 25 MG TAB PO SCH (07:40)
[2017-01-16] MEDS: LINAGLIPTIN 5 MG TABLET PO SCH ×2 (07:40→21:35)
[2017-01-16] MEDS: metFORMIN 500 MG TAB PO SCH ×2 (07:41→21:35)
[2017-01-16] MEDS: MULTIVITAMINS, THERA 1 EACH TAB PO SCH (07:41)
[2017-01-16] MEDS: POTASSIUM CHLORIDE ER 10 MEQ TAB.ER.PRT PO SCH (07:42)
[2017-01-16] MEDS: TIMOLOL 0.5% OPHTH DROPS 5 ML BTL LEFT EYE SCH ×2 (07:42→20:14)
[2017-01-16] MEDS: VIT A,C & E-LUTEIN-MINERALS 1 EACH TAB PO SCH (07:42)
[2017-01-16] MEDS: TAMSULOSIN 0.4 MG CAP.ER.24H PO SCH (07:42)
[2017-01-16 08:47] LABS: Anisocytosis Slight; Basophils # (A) 0.1 k/uL (0-0.2); Basophils % (A) 0 %; CH 25.8; CHCM 31.8; Eosinophils # (A) 0.1 k/uL (0-0.7); Eosinophils % (A) 0 %; HCT 30.1 % (39.0-53.0); HGB 9.9 gm/dL (13.0-17.5); Hypochromasia Slight; Luc % (Auto) 4; Lymphocytes # (A) 1.4 k/uL (1.0-4.8); Lymphocytes % (A) 6 %; MCH 26.6 pg (25.0-35.0); MCHC 32.7 g/dL (31.0-37.0); MCV 81.4 fL (80.0-100.0); Mean Platelet Volume 8.6; Microcytosis Slight; Monocytes # (A) 2.4 k/uL (0-1.0); Monocytes % (A) 11 %; Neutrophils # (A) 17.9 k/uL (1.3-7.7); Neutrophils % (A) 79 %; RDW 18.1 % (11.5-15.5); WBC 22.6 k/uL (3.8-10.6); WBC (Perox) 23.87
[2017-01-16 08:53] LABS: Reticulocyte % 1.8 % (0.5-2.0)
[2017-01-16] MEDS ORDERED: LEVOFLOXACIN 750 MG TAB PO SCH (09:00)
[2017-01-16 10:49] LABS: ALT 16 U/L (21-72); AST 13 U/L (17-59); Alkaline Phosphatase 59 U/L (38-126); Anion Gap 14 mmol/L; Blood Urea Nitrogen 20 mg/dL (9-20); Calcium 8.7 mg/dL (8.4-10.2); Carbon Dioxide 23 mmol/L (22-30); Chloride 92 mmol/L (98-107); Glucose 120 mg/dL (74-99); LDH 534 U/L (313-618); Non-African American GFR(MDRD) 46 (>60 ml/min/1.73 sqM); Sodium 129 mmol/L (137-145); Total Bilirubin 0.7 mg/dL (0.2-1.3); Total Protein 5.6 g/dL (6.3-8.2)
[2017-01-16 11:07] LABS: Manual Review Performed
[2017-01-16] MEDS: IPRATROPIUM-ALBUTEROL 3 ML NEB INHALATION PRN ×3 (11:53→20:55)
[2017-01-16] MEDS: LIDOCAINE 5% PATCH TOPICAL SCH (12:27)
[2017-01-16] MEDS: guaiFENesin 600 MG TABLET.ER PO SCH ×2 (12:27→20:13)
[2017-01-16 12:56] LABS: Iron 25 ug/dL (49-181)
[2017-01-16 13:07] LABS: % Iron Saturation 10.5 % (20-50); Total Iron Binding Capacity 239 ug/dL (261-462)
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
[2017-01-16 14:02] LABS: Vitamin B12 967 pg/mL
[2017-01-16 14:07] LABS: Glucose,Whole Blood 114 mg/dL (75-99)
[2017-01-16 14:25] VITALS: BMI 24.3
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
[2017-01-16] MEDS: ASPIRIN 81 MG CHEW PO SCH (16:38)
[2017-01-16] MEDS: FOLIC ACID 1 MG TAB PO SCH (16:38)
[2017-01-16 17:34] LABS: Glucose,Whole Blood 167 mg/dL (75-99)
[2017-01-16] MEDS: PRAMIPEXOLE 1 MG TAB PO SCH (20:12)
[2017-01-16] MEDS: MELATONIN 5 MG TABLET PO SCH (20:13)
[2017-01-16] MEDS: MEGESTROL 400 MG/10 ML CUP PO SCH (20:14)
[2017-01-16] MEDS: LATANOPROST 0.005% OPHTH DROPS 2.5 ML BTL LEFT EYE SCH (20:15)
[2017-01-16 21:08] LABS: Glucose,Whole Blood 195 mg/dL (75-99)
[2017-01-16] MEDS: ATORVASTATIN 10 MG TAB PO SCH (21:40)
[2017-01-17] MEDS: LIDOCAINE 5% PATCH TOPICAL SCH (07:41)
[2017-01-17] MEDS: CALCIUM POLYCARBOPHIL 625 MG TAB PO SCH (07:43)
[2017-01-17] MEDS: BRIMONIDINE TARTRATE 0.2% DROPS 5 ML BTL LEFT EYE SCH ×2 (07:43→20:30)
[2017-01-17] MEDS: CLOPIDOGREL 75 MG TAB PO SCH (07:43)
[2017-01-17] MEDS: FINASTERIDE 5 MG TAB PO SCH (07:43)
[2017-01-17] MEDS: metFORMIN 500 MG TAB PO SCH ×2 (07:43→20:32)
[2017-01-17] MEDS: TIMOLOL 0.5% OPHTH DROPS 5 ML BTL LEFT EYE SCH ×2 (07:43→20:34)
[2017-01-17] MEDS: VIT A,C & E-LUTEIN-MINERALS 1 EACH TAB PO SCH (07:44)
[2017-01-17] MEDS: LINAGLIPTIN 5 MG TABLET PO SCH ×2 (07:44→20:32)
[2017-01-17] MEDS: POTASSIUM CHLORIDE ER 10 MEQ TAB.ER.PRT PO SCH (07:44)
[2017-01-17] MEDS: MEGESTROL 400 MG/10 ML CUP PO SCH ×2 (07:44→20:34)
[2017-01-17] MEDS: guaiFENesin 600 MG TABLET.ER PO SCH ×2 (07:44→20:31)
[2017-01-17] MEDS: TAMSULOSIN 0.4 MG CAP.ER.24H PO SCH (07:44)
[2017-01-17] MEDS: MULTIVITAMINS, THERA 1 EACH TAB PO SCH (07:45)
[2017-01-17] MEDS: CARVEDILOL 12.5 MG TAB PO SCH ×2 (07:45→20:31)
[2017-01-17] MEDS: FUROSEMIDE 40 MG TAB PO SCH (07:45)
[2017-01-17] MEDS: LOSARTAN 25 MG TAB PO SCH (07:45)
[2017-01-17] MEDS: HEPARIN SODIUM,PORCINE 5,000 UNIT/ML 1 ML VIAL SQ SCH ×2 (07:45→20:35)
[2017-01-17] MEDS: PANTOPRAZOLE 40 MG TABLET PO SCH (07:46)
[2017-01-17] MEDS: PIPERACILLIN-TAZOBACTAM 3.375 GM in DEXTROSE/WATER 1 50ML.BAG IVPB SCH ×3 (07:46→23:37)
[2017-01-17] MEDS: INSULIN LISPRO (humaLOG) 300 UNIT/3 ML VIAL SQ SCH ×4 (07:49→22:00)
[2017-01-17 07:55] LABS: Glucose,Whole Blood 142 mg/dL (75-99)
[2017-01-17] MEDS: FERROUS SULFATE 325 MG TAB PO SCH (08:00)
[2017-01-17 09:12] LABS: Anisocytosis Slight; CH 25.9; CHCM 31.6; HCT 28.5 % (39.0-53.0); HDW 3.15; HGB 9.2 gm/dL (13.0-17.5); Hypochromasia Slight; MCH 26.6 pg (25.0-35.0); MCHC 32.3 g/dL (31.0-37.0); MCV 82.4 fL (80.0-100.0); Mean Platelet Volume 8.5; RBC 3.45 m/uL (4.30-5.90); WBC 22.9 k/uL (3.8-10.6)
[2017-01-17 09:27] LABS: Potassium 4.1 mmol/L (3.5-5.1)
[2017-01-17 09:28] LABS: Calcium 8.6 mg/dL (8.4-10.2)
[2017-01-17] MEDS: ACETAMINOPHEN TAB 325 MG TAB PO PRN (10:00)
[2017-01-17 12:02] LABS: Glucose,Whole Blood 216 mg/dL (75-99)
--- NOTE | 2017-01-17 13:36 | P.PN ---
Subjective 81-year-old male patient, known history of COPD, previous history of pseudomonal lung infection for which she was treated with quinolones and followed up by Dr. Del Castillo on outpatient basis. Primary care physician is . This patient has also multiple other medical comorbidities. 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 The patient came in to the emergency department after he had sustained a fall at home. The attributes this to his poor vision. The patient tripped and he landed on his right lateral and posterior chest area. He is currently expressing some pain and tenderness within the involved area. I reviewed the chest x-ray and there is a new consolidation of the right lower lobe. No disseminated fracture although the radiology report suggested fracture of the seventh rib on the right. Based on his previous history of pseudomonal infection, the patient was placed on a combination of Zosyn and Levaquin. He does not have any head trauma. No neck trauma. No change in mental status. No hemoptysis. No pleurisy. He is currently on room air. Pain is under good control. No evidence of any respiratory insufficiency due to chest wall trauma. The patient was seen again today 01/16/2017 in follow-up on the regular medical floor. He is currently sitting up in the chair at the bedside. He is awake and alert in no acute distress. He is maintaining good O2 saturations in the 90s on room air. Temperature 99.1. White count remains high at 22.6. She remains on Zosyn and Levaquin. Hemoglobin stable at 9.9. Sodium improved to 129. Follow-up blood cultures revealed no growth. The patient was seen again today 01/17/2017 in follow-up on the regular medical floor. He is currently sitting up in a chair at the bedside. He is more awake and alert today as compared to yesterday. He is tolerating his diet. He continues with a loose nonproductive cough. Maintaining good O2 saturations in the mid 90s on room air. He is afebrile. Hemodynamically stable. Blood culture reveals no growth to date. White count remains high at 22.9. Hemoglobin 9.2. Sodium 128. Creatinine up at 1.65. Objective - Vital Signs Vital signs: Vital Signs Temp 98.5 F 01/17/17 07:00 Pulse 94 01/17/17 07:00 Resp 16 01/17/17 07:00 BP 103/57 01/17/17 07:00 Pulse Ox 94 L 01/17/17 07:00 Intake & Output 01/16/17 01/17/17 01/17/17 18:59 06:59 18:59 Intake Total 237 310 200 Balance 237 310 200 Weight 72.575 kg Intake: Oral 237 310 200 Other: Voiding Method Urinal Urinal Urinal # Voids 2 2 # Bowel Movements 0 - Exam Head exam was generally normal. There was no scleral icterus or corneal arcus. Mucous membranes were moist.Neck was supple and without jugular venous distension, thyromegaly, or carotid bruits. Carotids were easily palpable bilaterally. There was no adenopathy. Lung sounds are diminished in lung bases. The right chest area is very sore to touch. There is a minor area of ecchymosis over the right posterior chest area. No flail chest. No chest wall deformity.Cardiac exam revealed the PMI to be normally situated and sized. The rhythm was regular and no extrasystoles were noted during several minutes of auscultation. The first and second heart sounds were normal and physiologic splitting of the second heart sound was noted. There were no murmurs, rubs, clicks, or gallops.Abdominal exam revealed normal bowel sounds. The abdomen was soft, non-tender, and without masses, organomegaly, or appreciable enlargement of the abdominal aorta.Examination of the extremities revealed easily palpable radial, femoral and pedal pulses. There was no cyanosis, clubbing or edema. Neurologically the patient is awake and alert. - Labs CBC & Chem 7: 01/17/17 08:51 01/17/17 08:51 Labs: Abnormal Lab Results - Last 24 Hours (Table) 01/16/17 01/16/17 01/16/17 Range/Units 07:26 12:03 17:13 WBC (3.8-10.6) k/uL RBC (4.30-5.90) m/uL Hgb (13.0-17.5) gm/dL Hct (39.0-53.0) % RDW (11.5-15.5) % Sodium (137-145) mmol/L Chloride (98-107) mmol/L BUN (9-20) mg/dL Creatinine (0.66-1.25) mg/dL Glucose (74-99) mg/dL POC Glucose (mg/dL) 114 H 167 H (75-99) mg/dL TIBC 239 L (261-462) ug/dL % Saturation 10.5 L (20-50) % 01/16/17 01/17/17 01/17/17 Range/Units 20:46 07:48 08:51 WBC 22.9 H (3.8-10.6) k/uL RBC 3.45 L (4.30-5.90) m/uL Hgb 9.2 L (13.0-17.5) gm/dL Hct 28.5 L (39.0-53.0) % RDW 18.0 H (11.5-15.5) % Sodium (137-145) mmol/L Chloride (98-107) mmol/L BUN (9-20) mg/dL Creatinine (0.66-1.25) mg/dL Glucose (74-99) mg/dL POC Glucose (mg/dL) 195 H 142 H (75-99) mg/dL TIBC (261-462) ug/dL % Saturation (20-50) % 01/17/17 01/17/17 Range/Units 08:51 11:59 WBC (3.8-10.6) k/uL RBC (4.30-5.90) m/uL Hgb (13.0-17.5) gm/dL Hct (39.0-53.0) % RDW (11.5-15.5) % Sodium 128 L (137-145) mmol/L Chloride 93 L (98-107) mmol/L BUN 23 H (9-20) mg/dL Creatinine 1.65 H (0.66-1.25) mg/dL Glucose 171 H (74-99) mg/dL POC Glucose (mg/dL) 216 H (75-99) mg/dL TIBC (261-462) ug/dL % Saturation (20-50) % Microbiology - Last 24 Hours (Table) 01/14/17 20:10 Blood Culture - Preliminary Blood No Growth after 48 hours Assessment and Plan Plan: Assessment 1 right mid lobe/lower lobe infiltrate. Rule out atelectasis. Possible pulmonary contusion post fall and trauma to the right lateral chest area. The patient has a ecchymotic bruise over the right posterior chest area and the chest wall is tender to touch. No significant rib fractures although this is suspicion for a nondisplaced fracture of the anterior aspect of the right seventh rib. A superimposed pneumonia is doubtful at this point knowing that the patient did not have any pneumonialike symptoms prior to his fall. 2 COPD 3 previous history of pseudomonal infection treated with quinolones on outpatient basis 4 legally blind and the patient has recurrent episodes of fall. 5 ataxia with poor balance and increased risk of falls. 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 Alejandre. We will continue with his current medications. We will repeat his chest x-ray in the morning. We will continue to follow.
--- NOTE | 2017-01-17 14:06 | XR ---
EXAMINATION TYPE: XR chest 1V portable DATE OF EXAM: 01/17/2017 COMPARISON: 01/15/2017 HISTORY: Abnormal x-ray TECHNIQUE: Single frontal view of the chest is obtained. FINDINGS: Soft tissue artifact noted on the right. There are persistent bilateral small effusions an d right-sided consolidation which is stable. No overt failure or pneumothorax. Postsurgical change right shoulder and arthropathy bilateral shoulders. Atherosclerotic change aorta. IMPRESSION: 1. Bilateral small effusion with persistent right-sided consolidation stable in appearance.
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
[2017-01-17] MEDS: IPRATROPIUM-ALBUTEROL 3 ML NEB INHALATION PRN ×2 (15:46→20:02)
[2017-01-17] MEDS: ASPIRIN 81 MG CHEW PO SCH (17:04)
[2017-01-17] MEDS: FOLIC ACID 1 MG TAB PO SCH (17:04)
[2017-01-17 17:12] LABS: Glucose,Whole Blood 167 mg/dL (75-99)
[2017-01-17] MEDS: PRAMIPEXOLE 1 MG TAB PO SCH (20:33)
[2017-01-17] MEDS: MELATONIN 5 MG TABLET PO SCH (20:34)
[2017-01-17] MEDS: LATANOPROST 0.005% OPHTH DROPS 2.5 ML BTL LEFT EYE SCH (20:35)
[2017-01-17 21:29] LABS: Glucose,Whole Blood 210 mg/dL (75-99)
[2017-01-17 21:29] LABS: Glucose,Whole Blood 223 mg/dL (75-99)
[2017-01-18] MEDS: ACETAMINOPHEN TAB 325 MG TAB PO PRN ×2 (03:48→08:48)
[2017-01-18 07:42] LABS: Glucose,Whole Blood 127 mg/dL (75-99)
[2017-01-18] MEDS: INSULIN LISPRO (humaLOG) 300 UNIT/3 ML VIAL SQ SCH ×4 (07:51→22:18)
[2017-01-18] MEDS: LIDOCAINE 5% PATCH TOPICAL SCH (08:34)
[2017-01-18] MEDS: LEVOFLOXACIN 750 MG TAB PO SCH (08:35)
[2017-01-18] MEDS: guaiFENesin 600 MG TABLET.ER PO SCH ×2 (08:35→20:22)
[2017-01-18] MEDS: PANTOPRAZOLE 40 MG TABLET PO SCH (08:35)
[2017-01-18] MEDS: FUROSEMIDE 40 MG TAB PO SCH (08:36)
[2017-01-18] MEDS: LOSARTAN 25 MG TAB PO SCH (08:36)
[2017-01-18] MEDS: FERROUS SULFATE 325 MG TAB PO SCH (08:36)
[2017-01-18] MEDS: TAMSULOSIN 0.4 MG CAP.ER.24H PO SCH (08:36)
[2017-01-18] MEDS: CARVEDILOL 12.5 MG TAB PO SCH ×2 (08:36→20:19)
[2017-01-18] MEDS: MEGESTROL 400 MG/10 ML CUP PO SCH ×2 (08:36→20:19)
[2017-01-18] MEDS: LINAGLIPTIN 5 MG TABLET PO SCH ×2 (08:36→20:19)
[2017-01-18] MEDS: VIT A,C & E-LUTEIN-MINERALS 1 EACH TAB PO SCH (08:37)
[2017-01-18] MEDS: BRIMONIDINE TARTRATE 0.2% DROPS 5 ML BTL LEFT EYE SCH ×2 (08:37→20:20)
[2017-01-18] MEDS: metFORMIN 500 MG TAB PO SCH (08:37)
[2017-01-18] MEDS: FINASTERIDE 5 MG TAB PO SCH (08:37)
[2017-01-18] MEDS: CALCIUM POLYCARBOPHIL 625 MG TAB PO SCH (08:37)
[2017-01-18] MEDS: TIMOLOL 0.5% OPHTH DROPS 5 ML BTL LEFT EYE SCH ×2 (08:37→20:20)
[2017-01-18] MEDS: CLOPIDOGREL 75 MG TAB PO SCH (08:37)
[2017-01-18] MEDS: HEPARIN SODIUM,PORCINE 5,000 UNIT/ML 1 ML VIAL SQ SCH ×2 (08:37→20:18)
[2017-01-18] MEDS: POTASSIUM CHLORIDE ER 10 MEQ TAB.ER.PRT PO SCH (08:38)
[2017-01-18] MEDS ORDERED: LOPERAMIDE 2 MG CAP PO PRN (08:43)
[2017-01-18] MEDS: PIPERACILLIN-TAZOBACTAM 3.375 GM in DEXTROSE/WATER 1 50ML.BAG IVPB SCH ×3 (08:48→23:18)
[2017-01-18 09:15] LABS: Anisocytosis Slight; CHCM 33.5; HCT 26.7 % (39.0-53.0); HDW 3.17; HGB 8.7 gm/dL (13.0-17.5); MCH 26.6 pg (25.0-35.0); MCHC 32.7 g/dL (31.0-37.0); MCV 81.1 fL (80.0-100.0); Mean Platelet Volume 9.1; Microcytosis Slight; RBC 3.29 m/uL (4.30-5.90); RDW 18.8 % (11.5-15.5); WBC 22.2 k/uL (3.8-10.6)
[2017-01-18 09:29] LABS: Calcium 8.8 mg/dL (8.4-10.2); Potassium 4.1 mmol/L (3.5-5.1)
[2017-01-18] MEDS: MULTIVITAMINS, THERA 1 EACH TAB PO SCH (09:35)
[2017-01-18] MEDS: SODIUM CHLORIDE 0.9% 1,000 ML IV SCH (11:35)
[2017-01-18 12:36] LABS: Glucose,Whole Blood 201 mg/dL (75-99)
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
[2017-01-18] MEDS: FOLIC ACID 1 MG TAB PO SCH (16:20)
[2017-01-18] MEDS: ASPIRIN 81 MG CHEW PO SCH (16:20)
[2017-01-18 16:39] LABS: Glucose,Whole Blood 371 mg/dL (75-99)
--- NOTE | 2017-01-18 19:08 | P.PN ---
Subjective 81-year-old male patient, known history of COPD, previous history of pseudomonal lung infection for which she was treated with quinolones and followed up by Dr. Del Castillo on outpatient basis. Primary care physician is . This patient has also multiple other medical comorbidities. 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 The patient came in to the emergency department after he had sustained a fall at home. The attributes this to his poor vision. The patient tripped and he landed on his right lateral and posterior chest area. He is currently expressing some pain and tenderness within the involved area. I reviewed the chest x-ray and there is a new consolidation of the right lower lobe. No disseminated fracture although the radiology report suggested fracture of the seventh rib on the right. Based on his previous history of pseudomonal infection, the patient was placed on a combination of Zosyn and Levaquin. He does not have any head trauma. No neck trauma. No change in mental status. No hemoptysis. No pleurisy. He is currently on room air. Pain is under good control. No evidence of any respiratory insufficiency due to chest wall trauma. The patient was seen again today 01/16/2017 in follow-up on the regular medical floor. He is currently sitting up in the chair at the bedside. He is awake and alert in no acute distress. He is maintaining good O2 saturations in the 90s on room air. Temperature 99.1. White count remains high at 22.6. She remains on Zosyn and Levaquin. Hemoglobin stable at 9.9. Sodium improved to 129. Follow-up blood cultures revealed no growth. The patient was seen again today 01/17/2017 in follow-up on the regular medical floor. He is currently sitting up in a chair at the bedside. He is more awake and alert today as compared to yesterday. He is tolerating his diet. He continues with a loose nonproductive cough. Maintaining good O2 saturations in the mid 90s on room air. He is afebrile. Hemodynamically stable. Blood culture reveals no growth to date. White count remains high at 22.9. Hemoglobin 9.2. Sodium 128. Creatinine up at 1.65. The patient was seen again today 01/18/2017 in follow-up on the regular medical floor. He is resting quite comfortably in bed. He denies any worsening shortness of breath, cough or congestion. His chest x-ray reveals bilateral small effusions with persistent right-sided consolidation which is stable. Sputum culture is pending. He remains on Zosyn and Levaquin. Blood culture reveals no growth to date. White count is trending down currently at 22.2. Creatinine trending down currently at 1.59. Sodium improved at 129. He remains anemic at 8.7. Objective - Vital Signs Vital signs: Vital Signs Temp 97.8 F 01/18/17 15:00 Pulse 78 01/18/17 15:00 Resp 16 01/18/17 15:00 BP 92/52 01/18/17 15:00 Pulse Ox 96 01/18/17 15:00 Intake & Output 01/18/17 01/18/17 01/19/17 06:59 18:59 06:59 Intake Total 250 Balance 250 Weight 72.575 kg Intake: Oral 250 Other: Voiding Method Urinal # Voids 4 2 - Exam Head exam was generally normal. There was no scleral icterus or corneal arcus. Mucous membranes were moist.Neck was supple and without jugular venous distension, thyromegaly, or carotid bruits. Carotids were easily palpable bilaterally. There was no adenopathy. Lung sounds are diminished in lung bases. The right chest area is very sore to touch. There is a minor area of ecchymosis over the right posterior chest area. No flail chest. No chest wall deformity.Cardiac exam revealed the PMI to be normally situated and sized. The rhythm was regular and no extrasystoles were noted during several minutes of auscultation. The first and second heart sounds were normal and physiologic splitting of the second heart sound was noted. There were no murmurs, rubs, clicks, or gallops.Abdominal exam revealed normal bowel sounds. The abdomen was soft, non-tender, and without masses, organomegaly, or appreciable enlargement of the abdominal aorta.Examination of the extremities revealed easily palpable radial, femoral and pedal pulses. There was no cyanosis, clubbing or edema. Neurologically the patient is awake and alert. - Labs CBC & Chem 7: 01/18/17 08:53 01/18/17 08:53 Labs: Abnormal Lab Results - Last 24 Hours (Table) 01/17/17 01/17/17 01/18/17 Range/Units 21:24 21:25 07:37 WBC (3.8-10.6) k/uL RBC (4.30-5.90) m/uL Hgb (13.0-17.5) gm/dL Hct (39.0-53.0) % RDW (11.5-15.5) % Sodium (137-145) mmol/L Chloride (98-107) mmol/L BUN (9-20) mg/dL Creatinine (0.66-1.25) mg/dL Glucose (74-99) mg/dL POC Glucose (mg/dL) 223 H 210 H 127 H (75-99) mg/dL 01/18/17 01/18/17 01/18/17 Range/Units 08:53 08:53 12:33 WBC 22.2 H (3.8-10.6) k/uL RBC 3.29 L (4.30-5.90) m/uL Hgb 8.7 L (13.0-17.5) gm/dL Hct 26.7 L (39.0-53.0) % RDW 18.8 H (11.5-15.5) % Sodium 129 L (137-145) mmol/L Chloride 92 L (98-107) mmol/L BUN 26 H (9-20) mg/dL Creatinine 1.59 H (0.66-1.25) mg/dL Glucose 152 H (74-99) mg/dL POC Glucose (mg/dL) 201 H (75-99) mg/dL 01/18/17 Range/Units 16:36 WBC (3.8-10.6) k/uL RBC (4.30-5.90) m/uL Hgb (13.0-17.5) gm/dL Hct (39.0-53.0) % RDW (11.5-15.5) % Sodium (137-145) mmol/L Chloride (98-107) mmol/L BUN (9-20) mg/dL Creatinine (0.66-1.25) mg/dL Glucose (74-99) mg/dL POC Glucose (mg/dL) 371 H (75-99) mg/dL Microbiology - Last 24 Hours (Table) 01/17/17 10:15 Gram Stain - Preliminary Sputum 01/14/17 20:10 Blood Culture - Preliminary Blood No Growth after 72 hours Assessment and Plan Plan: Assessment 1 right mid lobe/lower lobe infiltrate. Rule out atelectasis. Possible pulmonary contusion post fall and trauma to the right lateral chest area. The patient has a ecchymotic bruise over the right posterior chest area and the chest wall is tender to touch. No significant rib fractures although this is suspicion for a nondisplaced fracture of the anterior aspect of the right seventh rib. A superimposed pneumonia is doubtful at this point knowing that the patient did not have any pneumonia like symptoms prior to his fall. Pedal cultures pending. He remains on Zosyn and Levaquin. 2 COPD 3 previous history of pseudomonal infection treated with quinolones on outpatient basis 4 legally blind and the patient has recurrent episodes of fall. 5 ataxia with poor balance and increased risk of falls. 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 Alejandre. We will continue with his current medications. We will continue to follow. The plan is for discharge home possibly tomorrow with [facility] care in place.
[2017-01-18] MEDS: PRAMIPEXOLE 1 MG TAB PO SCH (20:19)
[2017-01-18] MEDS: LATANOPROST 0.005% OPHTH DROPS 2.5 ML BTL LEFT EYE SCH (20:19)
[2017-01-18] MEDS: MELATONIN 5 MG TABLET PO SCH (20:19)
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
[2017-01-18 21:02] LABS: Glucose,Whole Blood 151 mg/dL (75-99)
[2017-01-18] MEDS: ATORVASTATIN 10 MG TAB PO SCH (22:18)
[2017-01-19 07:43] LABS: Glucose,Whole Blood 134 mg/dL (75-99)
--- NOTE | 2017-01-19 07:48 | XR ---
EXAMINATION TYPE: XR chest 2V DATE OF EXAM: 01/19/2017 COMPARISON: Chest x-ray from 2 days ago. HISTORY: Pneumonia progress study TECHNIQUE: Frontal and lateral views of the chest are obtained. FINDINGS: Metallic hardware from right shoulder surgery is partially imaged. There is persistent car diomegaly with small bilateral pleural effusions and associated patchy left basilar atelectasis and/o r infiltrate. No sizable pneumothorax is evident bilaterally. No new infiltrate is seen. IMPRESSION: Cardiomegaly with small bilateral pleural effusions and left basilar atelectasis and/or infiltrate all redemonstrated. No new infiltrate is seen.
[2017-01-19 08:02] LABS: Calcium 8.8 mg/dL (8.4-10.2); Potassium 4.5 mmol/L (3.5-5.1)
[2017-01-19] MEDS: LIDOCAINE 5% PATCH TOPICAL SCH (08:07)
[2017-01-19] MEDS: PIPERACILLIN-TAZOBACTAM 3.375 GM in DEXTROSE/WATER 1 50ML.BAG IVPB SCH ×2 (08:07→15:29)
[2017-01-19] MEDS: HEPARIN SODIUM,PORCINE 5,000 UNIT/ML 1 ML VIAL SQ SCH ×2 (08:08→20:46)
[2017-01-19] MEDS: MEGESTROL 400 MG/10 ML CUP PO SCH ×2 (08:08→20:58)
[2017-01-19] MEDS: BRIMONIDINE TARTRATE 0.2% DROPS 5 ML BTL LEFT EYE SCH ×2 (08:08→20:45)
[2017-01-19] MEDS: MULTIVITAMINS, THERA 1 EACH TAB PO SCH (08:09)
[2017-01-19] MEDS: CLOPIDOGREL 75 MG TAB PO SCH (08:09)
[2017-01-19] MEDS: PANTOPRAZOLE 40 MG TABLET PO SCH (08:09)
[2017-01-19] MEDS: guaiFENesin 600 MG TABLET.ER PO SCH ×2 (08:09→20:43)
[2017-01-19] MEDS: LINAGLIPTIN 5 MG TABLET PO SCH ×2 (08:09→20:47)
[2017-01-19] MEDS: CARVEDILOL 12.5 MG TAB PO SCH ×2 (08:09→20:54)
[2017-01-19] MEDS: CALCIUM POLYCARBOPHIL 625 MG TAB PO SCH (08:09)
[2017-01-19] MEDS: INSULIN LISPRO (humaLOG) 300 UNIT/3 ML VIAL SQ SCH ×4 (08:09→21:02)
[2017-01-19] MEDS: VIT A,C & E-LUTEIN-MINERALS 1 EACH TAB PO SCH (08:09)
[2017-01-19] MEDS: LOSARTAN 25 MG TAB PO SCH (08:09)
[2017-01-19] MEDS: FINASTERIDE 5 MG TAB PO SCH (08:10)
[2017-01-19] MEDS: TAMSULOSIN 0.4 MG CAP.ER.24H PO SCH (08:10)
[2017-01-19] MEDS: FERROUS SULFATE 325 MG TAB PO SCH (08:10)
[2017-01-19] MEDS: SODIUM CHLORIDE 0.9% 1,000 ML IV SCH (08:10)
[2017-01-19] MEDS: TIMOLOL 0.5% OPHTH DROPS 5 ML BTL LEFT EYE SCH ×2 (08:18→20:46)
[2017-01-19 08:20] LABS: Anisocytosis Slight; CH 25.9; HCT 28.9 % (39.0-53.0); HDW 3.09; HGB 9.5 gm/dL (13.0-17.5); Hypochromasia Slight; MCH 26.7 pg (25.0-35.0); MCHC 32.9 g/dL (31.0-37.0); MCV 81.3 fL (80.0-100.0); Mean Platelet Volume 9.1; Microcytosis Slight; RBC 3.55 m/uL (4.30-5.90); RDW 17.9 % (11.5-15.5); WBC 21.4 k/uL (3.8-10.6); WBC (Perox) 21.19
[2017-01-19 08:35] LABS: Add Differential Manual Differential
[2017-01-19 08:37] LABS: Band Neutrophils % 2 %; Metamyelocytes % 2 %; Myelocytes % 1 %; Nucleated Red Blood Cells 0 /100 WBC (0-0); Polychromasia Present; Total Cells Counted 200
[2017-01-19] MEDS: ACETAMINOPHEN TAB 325 MG TAB PO PRN (09:23)
[2017-01-19 11:57] LABS: Glucose,Whole Blood 159 mg/dL (75-99)
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
[2017-01-19 17:28] LABS: Glucose,Whole Blood 220 mg/dL (75-99)
[2017-01-19] MEDS: ASPIRIN 81 MG CHEW PO SCH (18:23)
[2017-01-19] MEDS: FOLIC ACID 1 MG TAB PO SCH (18:23)
[2017-01-19] MEDS: IPRATROPIUM-ALBUTEROL 3 ML NEB INHALATION PRN (19:50)
[2017-01-19] MEDS: LATANOPROST 0.005% OPHTH DROPS 2.5 ML BTL LEFT EYE SCH (20:41)
[2017-01-19] MEDS: MELATONIN 5 MG TABLET PO SCH (20:48)
[2017-01-19] MEDS: PRAMIPEXOLE 1 MG TAB PO SCH (20:58)
[2017-01-19 21:03] LABS: Glucose,Whole Blood 276 mg/dL (75-99)
[2017-01-20] MEDS: PIPERACILLIN-TAZOBACTAM 3.375 GM in DEXTROSE/WATER 1 50ML.BAG IVPB SCH ×3 (00:27→16:52)
[2017-01-20 07:03] LABS: Glucose,Whole Blood 146 mg/dL (75-99)
--- NOTE | 2017-01-20 07:31 | XR ---
EXAMINATION TYPE: XR chest 2V DATE OF EXAM: 01/20/2017 COMPARISON: Chest x-ray from yesterday and older studies. HISTORY: Pneumonia progress study. TECHNIQUE: Frontal and lateral views of the chest are obtained. FINDINGS: Metallic hardware from right shoulder surgery is redemonstrated. There is persistent cardi omegaly with bibasilar opacity consistent with small bilateral pleural effusions and associated left basilar atelectasis and/or infiltrate. Upper lungs remain clear without pneumothorax bilaterally. No new infiltrate is seen. IMPRESSION: Cardiomegaly with small bilateral pleural effusions and left basilar infiltrate and/or a telectasis all redemonstrated without significant interval change.
[2017-01-20] MEDS: SODIUM CHLORIDE 0.9% 1,000 ML IV SCH (07:32)
[2017-01-20] MEDS: BRIMONIDINE TARTRATE 0.2% DROPS 5 ML BTL LEFT EYE SCH ×2 (08:00→20:10)
[2017-01-20] MEDS: LIDOCAINE 5% PATCH TOPICAL SCH (08:00)
[2017-01-20] MEDS: VIT A,C & E-LUTEIN-MINERALS 1 EACH TAB PO SCH (08:01)
[2017-01-20] MEDS: INSULIN LISPRO (humaLOG) 300 UNIT/3 ML VIAL SQ SCH ×4 (08:01→22:12)
[2017-01-20] MEDS: FERROUS SULFATE 325 MG TAB PO SCH (08:01)
[2017-01-20] MEDS: LINAGLIPTIN 5 MG TABLET PO SCH ×2 (08:01→20:11)
[2017-01-20] MEDS: FINASTERIDE 5 MG TAB PO SCH (08:01)
[2017-01-20] MEDS: CALCIUM POLYCARBOPHIL 625 MG TAB PO SCH (08:01)
[2017-01-20] MEDS: guaiFENesin 600 MG TABLET.ER PO SCH ×2 (08:01→20:12)
[2017-01-20] MEDS: PANTOPRAZOLE 40 MG TABLET PO SCH (08:02)
[2017-01-20] MEDS: CLOPIDOGREL 75 MG TAB PO SCH (08:02)
[2017-01-20] MEDS: HEPARIN SODIUM,PORCINE 5,000 UNIT/ML 1 ML VIAL SQ SCH ×2 (08:02→20:13)
[2017-01-20] MEDS: MULTIVITAMINS, THERA 1 EACH TAB PO SCH (08:02)
[2017-01-20] MEDS: CARVEDILOL 12.5 MG TAB PO SCH ×2 (08:02→20:07)
[2017-01-20] MEDS: MEGESTROL 400 MG/10 ML CUP PO SCH ×2 (08:02→20:12)
[2017-01-20] MEDS: LOSARTAN 25 MG TAB PO SCH (08:02)
[2017-01-20] MEDS: TAMSULOSIN 0.4 MG CAP.ER.24H PO SCH (08:03)
[2017-01-20] MEDS: TIMOLOL 0.5% OPHTH DROPS 5 ML BTL LEFT EYE SCH ×2 (08:21→20:12)
[2017-01-20 08:52] LABS: Anisocytosis Slight; CH 26.9; CHCM 32.6; HCT 28.6 % (39.0-53.0); HDW 3.09; HGB 8.9 gm/dL (13.0-17.5); Hypochromasia Slight; MCH 25.6 pg (25.0-35.0); MCV 82.7 fL (80.0-100.0); Mean Platelet Volume 9.8; RBC 3.46 m/uL (4.30-5.90); RDW 18.5 % (11.5-15.5); WBC 22.5 k/uL (3.8-10.6)
[2017-01-20] MEDS ORDERED: BISACODYL 10 MG SUPP RECTAL STA (09:35)
[2017-01-20 09:50] LABS: Calcium 8.5 mg/dL (8.4-10.2); Potassium 4.5 mmol/L (3.5-5.1)
[2017-01-20] MEDS: LEVOFLOXACIN 750 MG TAB PO SCH (10:05)
[2017-01-20] MEDS: MAGNESIUM HYDROXIDE 2,400 MG/10 ML CUP PO SCH (10:38)
[2017-01-20] MEDS: SENNOSIDES-DOCUSATE SODIUM 1 EACH TAB PO SCH (10:38)
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
[2017-01-20 11:49] LABS: Glucose,Whole Blood 206 mg/dL (75-99)
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
[2017-01-20 16:51] LABS: Glucose,Whole Blood 219 mg/dL (75-99)
[2017-01-20] MEDS: ASPIRIN 81 MG CHEW PO SCH (16:52)
[2017-01-20] MEDS: FOLIC ACID 1 MG TAB PO SCH (16:52)
[2017-01-20] MEDS: MELATONIN 5 MG TABLET PO SCH (20:11)
[2017-01-20] MEDS: PRAMIPEXOLE 1 MG TAB PO SCH (20:12)
[2017-01-20] MEDS: LATANOPROST 0.005% OPHTH DROPS 2.5 ML BTL LEFT EYE SCH (20:12)
[2017-01-20 22:11] LABS: Glucose,Whole Blood 233 mg/dL (75-99)
[2017-01-21] MEDS: PIPERACILLIN-TAZOBACTAM 3.375 GM in DEXTROSE/WATER 1 50ML.BAG IVPB SCH ×2 (00:48→07:42)
[2017-01-21] MEDS: SODIUM CHLORIDE 0.9% 1,000 ML IV SCH (02:14)
[2017-01-21 07:19] LABS: Glucose,Whole Blood 168 mg/dL (75-99)
[2017-01-21 07:24] VITALS: BP 134/65; PULSE 79; RESP 18; TEMP 99.3
[2017-01-21] MEDS: TIMOLOL 0.5% OPHTH DROPS 5 ML BTL LEFT EYE SCH (07:42)
[2017-01-21] MEDS: CLOPIDOGREL 75 MG TAB PO SCH (07:43)
[2017-01-21] MEDS: VIT A,C & E-LUTEIN-MINERALS 1 EACH TAB PO SCH (07:43)
[2017-01-21] MEDS: LIDOCAINE 5% PATCH TOPICAL SCH (07:43)
[2017-01-21] MEDS: LINAGLIPTIN 5 MG TABLET PO SCH (07:43)
[2017-01-21] MEDS: CALCIUM POLYCARBOPHIL 625 MG TAB PO SCH (07:44)
[2017-01-21] MEDS: SENNOSIDES-DOCUSATE SODIUM 1 EACH TAB PO SCH (07:44)
[2017-01-21] MEDS: CARVEDILOL 12.5 MG TAB PO SCH (07:44)
[2017-01-21] MEDS: HEPARIN SODIUM,PORCINE 5,000 UNIT/ML 1 ML VIAL SQ SCH (07:44)
[2017-01-21] MEDS: TAMSULOSIN 0.4 MG CAP.ER.24H PO SCH (07:45)
[2017-01-21] MEDS: guaiFENesin 600 MG TABLET.ER PO SCH (07:45)
[2017-01-21] MEDS: LOSARTAN 25 MG TAB PO SCH (07:45)
[2017-01-21] MEDS: MEGESTROL 400 MG/10 ML CUP PO SCH (07:45)
[2017-01-21] MEDS: FINASTERIDE 5 MG TAB PO SCH (07:45)
[2017-01-21] MEDS: PANTOPRAZOLE 40 MG TABLET PO SCH (07:45)
[2017-01-21] MEDS: MULTIVITAMINS, THERA 1 EACH TAB PO SCH (07:45)
[2017-01-21] MEDS: FERROUS SULFATE 325 MG TAB PO SCH (07:46)
[2017-01-21] MEDS: INSULIN LISPRO (humaLOG) 300 UNIT/3 ML VIAL SQ SCH (07:46)
[2017-01-21] MEDS: MAGNESIUM HYDROXIDE 2,400 MG/10 ML CUP PO SCH (07:49)
[2017-01-21] MEDS: BRIMONIDINE TARTRATE 0.2% DROPS 5 ML BTL LEFT EYE SCH (07:54)
[2017-01-21 08:26] LABS: Calcium 8.4 mg/dL (8.4-10.2); Potassium 4.5 mmol/L (3.5-5.1)
[2017-01-21 11:16] LABS: Anisocytosis Slight; CH 26.8; CHCM 32.4; HCT 27.1 % (39.0-53.0); HDW 3.04; HGB 8.9 gm/dL (13.0-17.5); Hypochromasia Slight; MCH 27.3 pg (25.0-35.0); MCHC 32.8 g/dL (31.0-37.0); MCV 83.1 fL (80.0-100.0); Mean Platelet Volume 10.4; RBC 3.26 m/uL (4.30-5.90); RDW 18.7 % (11.5-15.5); WBC 20.7 k/uL (3.8-10.6)
[2017-01-21 12:08] LABS: Glucose,Whole Blood 170 mg/dL (75-99)
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
== END 2017-01-21 12:25 | disposition home health service (06) | DRG 190 ==
LOC: EC 18:23 → 4MS4W 21:58
PROVIDERS: ADMIT Internal Medicine; ATTEND Internal Medicine
DX: J44.0 Chronic obstructive pulmonary disease with (acute) lower respiratory infection (principal); J15.6 Pneumonia due to other Gram-negative bacteria; N17.9 Acute kidney failure, unspecified; E11.22 Type 2 diabetes mellitus with diabetic chronic kidney disease; S22.41XA Multiple fractures of ribs, right side, initial encounter for closed fracture; I13.10 Hypertensive heart and chronic kidney disease without heart failure, with stage 1 through stage 4 chronic kidney disease, or unspecified chronic kidney disease; E11.42 Type 2 diabetes mellitus with diabetic polyneuropathy; N18.3 Chronic kidney disease, stage 3 (moderate); H33.20 Serous retinal detachment, unspecified eye; J98.11 Atelectasis; I27.81 Cor pulmonale (chronic); D64.9 Anemia, unspecified; E78.5 Hyperlipidemia, unspecified; G25.81 Restless legs syndrome; G47.30 Sleep apnea, unspecified; H54.8 Legal blindness, as defined in USA; H91.10 Presbycusis, unspecified ear; I25.10 Atherosclerotic heart disease of native coronary artery without angina pectoris; I25.5 Ischemic cardiomyopathy; K21.9 Gastro-esophageal reflux disease without esophagitis; K59.00 Constipation, unspecified; M06.9 Rheumatoid arthritis, unspecified; N40.0 Benign prostatic hyperplasia without lower urinary tract symptoms; B96.5 Pseudomonas (aeruginosa) (mallei) (pseudomallei) as the cause of diseases classified elsewhere; R19.7 Diarrhea, unspecified; W01.0XXA Fall on same level from slipping, tripping and stumbling without subsequent striking against object, initial encounter; Y92.009 Unspecified place in unspecified non-institutional (private) residence as the place of occurrence of the external cause; Z79.02 Long term (current) use of antithrombotics/antiplatelets; Z79.82 Long term (current) use of aspirin; Z79.84 Long term (current) use of oral hypoglycemic drugs; Z79.899 Other long term (current) drug therapy; Z80.1 Family history of malignant neoplasm of trachea, bronchus and lung; Z80.51 Family history of malignant neoplasm of kidney; Z82.0 Family history of epilepsy and other diseases of the nervous system; Z82.49 Family history of ischemic heart disease and other diseases of the circulatory system; Z83.3 Family history of diabetes mellitus; Z87.01 Personal history of pneumonia (recurrent); Z87.442 Personal history of urinary calculi; Z87.891 Personal history of nicotine dependence; Z91.81 History of falling; Z95.5 Presence of coronary angioplasty implant and graft; Z96.611 Presence of right artificial shoulder joint; Z97.0 Presence of artificial eye; I69.393 Ataxia following cerebral infarction
CPT/HCPCS: 36415; 71010; 71020; 80048; 80053; 82607; 82728; 82746; 83036; 83540; 83550; 83605; 83615; 83880; 85025; 85027; 85045; 87040; 87070; 87205; 87324; 94640; 94760; 96365; 96366; 99285

== ENCOUNTER → 2017-02-15 | Outpatient (CLI) | payer MEDICARE ==
--- NOTE | 2017-02-15 12:44 | XR ---
EXAMINATION TYPE: XR chest 2V DATE OF EXAM: 02/15/2017 COMPARISON: 01/20/2017 TECHNIQUE: PA and lateral views submitted. HISTORY: Productive cough FINDINGS: Hypertrophic and degenerative change of the spine. Hyperinflation noted. There is subsegmental consol idation along the right heart border. Prostatic right shoulder and arthropathy of both shoulders. No overt failure. Tiny pleural thickening or effusion noted bilaterally. No sizable pneumothorax. Heart size is stable. IMPRESSION: 1. Right-sided consolidation correlate for pneumonia versus atelectasis. Endobronchial lesion in the differential. Follow-up CT scan could be obtained. 2. Correlate for COPD.
== END | disposition home or self-care (01) ==
LOC: RADXRMAIN 12:21
PROVIDERS: ATTEND Internal Medicine
DX: J44.9 Chronic obstructive pulmonary disease, unspecified (principal); I50.33 Acute on chronic diastolic (congestive) heart failure
CPT/HCPCS: 71020

== ENCOUNTER 2017-04-05 12:13 | Inpatient (IN) | payer MEDICARE ==
[2017-04-05] MEDS ORDERED: SODIUM CHLORIDE 0.9% 1,000 ML IV STA (12:21)
--- NOTE | 2017-04-05 12:25 | ED ---
General Adult HPI - General Stated complaint: abmormal labs Time Seen by Provider: 04/05/17 12:17 Source: EMS, RN notes reviewed, old records reviewed Mode of arrival: EMS Limitations: no limitations - History of Present Illness Initial comments: 81-year-old male presents from the assisted with abnormal laboratory studies. This was discussed with Dr. Hassan, prior to transfer. Patient has acute on chronic kidney failure with a creatinine of 5.7 from baseline of 1.6. Patient has recent hospital admission with pneumonia and congestive heart failure. On initial evaluation, patient is unable to significantly contribute to the history. Denies any pain complaints. - Related Data Home Medications Medication Instructions Recorded Confirmed Alfuzosin HCl [Uroxatral] 10 mg PO DAILY 11/27/13 04/05/17 Bimatoprost [Lumigan .01% Ophth 1 drop LEFT EYE HS 11/27/13 04/05/17 Soln] Brimonidine Tartrate/Timolol 1 drop LEFT EYE BID@0800,1700 11/27/13 04/05/17 [Combigan 0.2%/0.5% Ophth Soln] Carvedilol [Coreg] 6.25 mg PO BID@0800,1700 11/27/13 04/05/17 Folic Acid 1 mg PO DAILY@1700 11/27/13 04/05/17 Simvastatin [Zocor] 10 mg PO MOWEFR 11/27/13 04/05/17 Magnesium Oxide [Mag-Ox] 400 mg PO DAILY@1700 12/14/13 04/05/17 Clopidogrel [Plavix] 75 mg PO DAILY 06/04/14 04/05/17 Omeprazole [PriLOSEC] 20 mg PO DAILY@0600 06/04/14 04/05/17 Finasteride [Proscar] 5 mg PO DAILY 04/18/15 04/05/17 Multivitamins, Thera [Multivitamin 1 tab PO DAILY@1700 06/16/15 04/05/17 (formulary)] Pramipexole Di-HCl [Mirapex] 1 mg PO HS 11/05/16 04/05/17 Melatonin 10 mg PO HS 03/07/17 04/05/17 Aspirin EC [Ecotrin Low Dose] 81 mg PO DAILY@1700 03/11/17 04/05/17 Calcium Polycarbophil [Fibercon] 625 mg PO DAILY 03/11/17 04/05/17 Docusate [Colace] 100 mg PO HS 03/11/17 04/05/17 Ferrous Sulfate [Iron (65 MG 650 mg PO HS 03/11/17 04/05/17 Elemental)] Loratadine [Claritin] 10 mg PO DAILY 03/11/17 04/05/17 Megestrol [Megace] 400 mg PO DAILY 03/11/17 04/05/17 Montelukast [Singulair] 10 mg PO HS 03/11/17 04/05/17 Sodium Chloride [[place]] 1 spray EA NOSTRIL BID@0800,1700 03/11/17 04/05/17 Vits A,C,E/Lutein/Minerals 1 tab PO DAILY@1700 03/11/17 04/05/17 [Ocuvite with Lutein Tablet] Ascorbic Acid [Vitamin C] 1,000 mg PO DAILY@1700 04/05/17 04/05/17 Benzonatate [Tessalon Perles] 100 mg PO TID@0600,1400,2100 04/05/17 04/05/17 Bisacodyl 10 mg RECTAL DAILY PRN 04/05/17 04/05/17 Carbamide Peroxide [Debrox Otic] 10 drops LEFT EAR BID 04/05/17 04/05/17 Fluticasone Nasal [place] [Flonase 1 spray EA NOSTRIL BID@0800,1700 04/05/1704/05 Nasal Griffith] Furosemide [Lasix] 40 mg PO Q48H 04/05/17 04/05/17 Gentamicin Sulfate [Gentamicin 1 applic TOPICAL DAILY 04/05/17 04/05/17 Sulfate 0.1%] INSULIN LISPRO (humaLOG) [humaLOG] See Protocol SQ ACHS 04/05/17 04/05/17 Insulin NPH [HumuLIN N] 6 unit SQ DAILY@0700 04/05/17 04/05/17 Ipratropium-Albuterol Nebulize 3 ml INHALATION RT-QID@08,12,17,21 04/05/1704/05 [Duoneb 0.5 mg-3 mg/3 ml Soln] Lidocaine 2% Gel [Xylocaine Jelly 1 applic TOPICAL Q4HR PRN 04/05/17 04/05/17 2%] Potassium Chloride ER [K-Dur 20] 20 meq PO DAILY@1700 04/05/17 04/05/17 predniSONE See Taper PO DIRECTED 04/05/17 04/05/17 Previous Rx's Medication Instructions Recorded ALPRAZolam [Xanax] 0.25 mg PO BID PRN #60 tab 03/21/17 Hydrocodone/Chlorphen P-Stirex 5 ml PO Q12HR PRN #60 ml 03/21/17 [Tussionex] Linagliptin [Tradjenta] 5 mg PO BID tablet 03/21/17 Spironolactone [Aldactone] 25 mg PO DAILY tab 03/21/17 guaiFENesin [Mucinex] 600 mg PO Q12HR tablet.er 03/21/17 Allergies Allergy/AdvReac Type Severity Reaction Status Date / Time codeine AdvReac Nausea & Verified 04/05/17 12:24 Vomiting & Diarrhea POSITIVE TB REACTOR Allergy Unknown Uncoded 04/05/17 12:24 Review of Systems ROS Statement: Those systems with pertinent positive or pertinent negative responses have been documented in the HPI. ROS Other: All systems not noted in ROS Statement are negative. Past Medical History Past Medical History: Coronary Artery Disease (CAD), COPD, CVA/TIA, Diabetes Mellitus, Eye Disorder, Hyperlipidemia, Hypertension, Osteoarthritis (OA), Prostate Disorder, Skin Disorder, Sleep Apnea/CPAP/BIPAP Additional Past Medical History / Comment(s): Legally blind - prosthesis right eye, anemia, CVA 2009 - unsteady walking due to effects of vision, uses walker, inflammatory arthritis, ankle edema, chronic productive cough, rash on and off on arms and stomach due to dermatitis, CAD post PCI of the proximal and mid LAD back in 2013, ischemic cardiomyopathy, diabetes mellitus type 2, osteoarthritis , 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 History of Any Multi-Drug Resistant Organisms: None Reported Past Surgical History: Adenoidectomy, Heart Catheterization With Stent, Joint Replacement, Tonsillectomy Additional Past Surgical History / Comment(s): Right shoulder replacement, removal of right eye (prosthesis used) 195, tonsillectomy and adenoidectomy, nodule of the vocal cord back in 2004, right shoulder replacement in 2007 and in 2014, arthroscopic knee surgery bilaterally, carpal tunnel release in 2008 the left hand, cystoscopy due to kidney stones back in 06/19/2010, bilateral cataract surgery in 05/09/2011, temporal artery biopsies 05/15/[address] Krishna, bronchoscopy in 11/08/[address] Bach of that documented Pseudomonas aeruginosa. History of bone marrow biopsy in 2012. EGD and colonoscopy 2015 and 2016 respectively Past Anesthesia/Blood Transfusion Reactions: No Reported Reaction Date of Last Stent Placement:: 03/2014 Past Psychological History: No Psychological Hx Reported Smoking Status: Former smoker Past Alcohol Use History: None Reported Past Drug Use History: None Reported - Past Family History Sister(s) Family Medical History: Cancer Additional Family Medical History / Comment(s): Patient had 3 sisters and one from lung cancer and was a heavy smoker. Mother Family Medical History: Dementia Additional Family Medical History / Comment(s): Mother at age 97 from Alzheimer dementia. Father Family Medical History: Diabetes Mellitus, Myocardial Infarction ([place]) Additional Family Medical History / Comment(s): Father at age 63 from myocardial infarction and he was diabetic. Brother(s) Family Medical History: Cancer, Rheumatoid Arthritis (RA) Additional Family Medical History / Comment(s): Patient has 2 brothers and one had renal cancer status post nephrectomy. The other was diagnosed with rheumatoid arthritis and anemia of chronic inflammatory disorder. Son(s) Family Medical History: No Reported History Additional Family Medical History / Comment(s): Patient has 2 sons with no major medical problems. General Exam Limitations: no limitations General appearance: lethargic Head exam: Present: atraumatic, normocephalic Eye exam: Present: normal appearance ENT exam: Present: mucous membranes dry Neck exam: Present: normal inspection. Absent: tenderness, meningismus Respiratory exam: Present: respiratory distress, rhonchi (May be transmitted upper airway sounds) Cardiovascular Exam: Present: regular rate, normal rhythm GI/Abdominal exam: Present: soft, distended. Absent: tenderness, guarding Extremities exam: Present: normal inspection, pedal edema Neurological exam: Present: alert, other Skin exam: Present: warm, dry. Absent: cyanosis, diaphoretic Course Vital Signs 04/05/17 04/05/17 04/05/17 12:17 12:51 13:33 Temperature 97.8 F Pulse Rate 103 H 116 H Respiratory 20 22 20 Rate Blood Pressure 121/59 138/69 O2 Sat by Pulse 98 96 Oximetry 04/05/17 04/05/17 14:02 15:17 Temperature 98.8 F 97.7 F Pulse Rate 92 87 Respiratory 18 18 Rate Blood Pressure 140/64 131/74 O2 Sat by Pulse 99 95 Oximetry EKG Findings - EKG Comments: EKG Findings:: EKG shows etc. junctional rhythm, left anterior fascicular block , ventricular rate 107 castration 112, QTC 443, no signs ischemia Medical Decision Making - Medical Decision Making 81-year-old male presenting with abnormal outpatient labs, patient's found to be in acute renal failure. Baseline creatinine 1.6, creatinine today 5.7 with a BUN of 103. Patient is making urine. He is fully catheter in place. Sodium is also low 129. Hemoglobin stable at 8.4 baseline 7.7, patient does have white blood cell count 31.3. This may be related to right lower lobe pneumonia on chest x-ray. There is also some concern for possible right pleural effusion, left costophrenic angle is clear. Likely due to pneumonia. Patient started on broad-spectrum antibiotics for healthcare associated pneumonia. This is discussed with nephrology, Dr. Tamayo, recommend patient be given gentle IV hydration for acute on chronic renal failure. Normal saline 75 mL an hour. Diagnosis: Healthcare associated pneumonia, acute on chronic renal failure - Lab Data Result diagrams: 04/05/17 12:47 04/05/17 12:47 Lab Results 04/05/17 04/05/17 04/05/17 Range/Units 12:47 12:47 12:47 WBC 31.3 H* (3.8-10.6) k/uL RBC 3.05 L (4.30-5.90) m/uL Hgb 8.5 L (13.0-17.5) gm/dL Hct 27.2 L (39.0-53.0) % MCV 89.1 (80.0-100.0) fL MCH 27.8 (25.0-35.0) pg MCHC 31.2 (31.0-37.0) g/dL RDW 18.6 H (11.5-15.5) % Plt Count 124 L (150-450) k/uL Neutrophils % (Manual) 85 % Band Neutrophils % 1 % Lymphocytes % (Manual) 6 % Monocytes % (Manual) 8 % Metamyelocytes % 1 % Neutrophils # (Manual) 26.90 H (1.3-7.7) k/uL Lymphocytes # (Manual) 1.88 (1.0-4.8) k/uL Monocytes # (Manual) 2.50 H (0-1.0) k/uL Metamyelocytes # (Man) 0.31 H (0) k/uL Nucleated RBCs 0 (0-0) /100 WBC Manual Slide Review Performed Hypochromasia Slight Anisocytosis Slight PT (9.0-12.0) sec INR (<1.2) APTT (22.0-30.0) sec Sodium 129 L (137-145) mmol/L Potassium 5.1 (3.5-5.1) mmol/L Chloride 97 L (98-107) mmol/L Carbon Dioxide 17 L (22-30) mmol/L Anion Gap 15 mmol/L BUN 103 H* (9-20) mg/dL Creatinine 5.70 H* (0.66-1.25) mg/dL Est GFR (MDRD) Af Amer 12 (>60 ml/min/1.73 sqM) Est GFR (MDRD) Non-Af 10 (>60 ml/min/1.73 sqM) Glucose 179 H (74-99) mg/dL Plasma Lactic Acid Jacques (0.7-2.0) mmol/L Calcium 9.0 (8.4-10.2) mg/dL Magnesium 2.0 (1.6-2.3) mg/dL Total Bilirubin 0.7 (0.2-1.3) mg/dL AST 14 L (17-59) U/L ALT 23 (21-72) U/L Alkaline Phosphatase 62 (38-126) U/L Total Creatine Kinase <20 L (55-170) U/L CK-MB (CK-2) 2.3 (0.0-2.4) ng/mL CK-MB (CK-2) Rel Index Troponin I 0.035 H* (0.000-0.034) ng/mL Total Protein 5.3 L (6.3-8.2) g/dL Albumin 3.2 L (3.5-5.0) g/dL Urine Color Urine Appearance (Clear) Urine pH (5.0-8.0) Ur Specific Elizabeth (1.001-1.035) Urine Protein (Negative) Urine Glucose (UA) (Negative) Urine Ketones (Negative) Urine Blood (Negative) Urine Nitrite (Negative) Urine Bilirubin (Negative) Urine Urobilinogen (<2.0) mg/dL Ur Leukocyte Esterase (Negative) Urine RBC (0-5) /hpf Urine WBC (0-5) /hpf Ur Squamous Epith Cells (0-4) /hpf Amorphous Sediment (None) /hpf Urine Bacteria (None) /hpf Urine Mucus (None) /hpf 04/05/17 04/05/17 04/05/17 Range/Units 12:47 12:47 12:47 WBC (3.8-10.6) k/uL RBC (4.30-5.90) m/uL Hgb (13.0-17.5) gm/dL Hct (39.0-53.0) % MCV (80.0-100.0) fL MCH (25.0-35.0) pg MCHC (31.0-37.0) g/dL RDW (11.5-15.5) % Plt Count (150-450) k/uL Neutrophils % (Manual) % Band Neutrophils % % Lymphocytes % (Manual) % Monocytes % (Manual) % Metamyelocytes % % Neutrophils # (Manual) (1.3-7.7) k/uL Lymphocytes # (Manual) (1.0-4.8) k/uL Monocytes # (Manual) (0-1.0) k/uL Metamyelocytes # (Man) (0) k/uL Nucleated RBCs (0-0) /100 WBC Manual Slide Review Hypochromasia Anisocytosis PT 12.3 H (9.0-12.0) sec INR 1.2 H (<1.2) APTT 24.7 (22.0-30.0) sec Sodium (137-145) mmol/L Potassium (3.5-5.1) mmol/L Chloride (98-107) mmol/L Carbon Dioxide (22-30) mmol/L Anion Gap mmol/L BUN (9-20) mg/dL Creatinine (0.66-1.25) mg/dL Est GFR (MDRD) Af Amer (>60 ml/min/1.73 sqM) Est GFR (MDRD) Non-Af (>60 ml/min/1.73 sqM) Glucose (74-99) mg/dL Plasma Lactic Acid Jacques 1.0 (0.7-2.0) mmol/L Calcium (8.4-10.2) mg/dL Magnesium (1.6-2.3) mg/dL Total Bilirubin (0.2-1.3) mg/dL AST (17-59) U/L ALT (21-72) U/L Alkaline Phosphatase (38-126) U/L Total Creatine Kinase (55-170) U/L CK-MB (CK-2) (0.0-2.4) ng/mL CK-MB (CK-2) Rel Index Troponin I (0.000-0.034) ng/mL Total Protein (6.3-8.2) g/dL Albumin (3.5-5.0) g/dL Urine Color Yellow Urine Appearance Cloudy (Clear) Urine pH 5.5 (5.0-8.0) Ur Specific Elizabeth 1.011 (1.001-1.035) Urine Protein 2+ H (Negative) Urine Glucose (UA) Negative (Negative) Urine Ketones Negative (Negative) Urine Blood Moderate H (Negative) Urine Nitrite Negative (Negative) Urine Bilirubin Negative (Negative) Urine Urobilinogen <2.0 (<2.0) mg/dL Ur Leukocyte Esterase Negative (Negative) Urine RBC 149 H (0-5) /hpf Urine WBC 7 H (0-5) /hpf Ur Squamous Epith Cells 1 (0-4) /hpf Amorphous Sediment Few H (None) /hpf Urine Bacteria Rare H (None) /hpf Urine Mucus Rare H (None) /hpf Disposition Clinical Impression: Acute on chronic renal failure, Healthcare-associated pneumonia Disposition: ADMITTED IP TO THIS [facility] Condition: Stable Referrals: Kaitlin Hassan MD [Primary Care Provider] - 1-2 days Decision to Admit Reason: Admit from EC Decision Date: 04/05/17 Decision Time: 16:02
[2017-04-05 13:02] LABS: Anisocytosis Slight; CH 28.2; CHCM 31.9; HCT 27.2 % (39.0-53.0); HDW 3.14; HGB 8.5 gm/dL (13.0-17.5); Hypochromasia Slight; Immature Gran Flag Slight; MCH 27.8 pg (25.0-35.0); MCHC 31.2 g/dL (31.0-37.0); MCV 89.1 fL (80.0-100.0); Mean Platelet Volume 9.6; RBC 3.05 m/uL (4.30-5.90); RDW 18.6 % (11.5-15.5); WBC (Perox) 30.65
[2017-04-05 13:06] LABS: WBC 31.3 k/uL (3.8-10.6)
[2017-04-05 13:11] LABS: INR 1.2 (<1.2); Partial Thromboplastin Time 24.7 sec (22.0-30.0); Prothrombin Time 12.3 sec (9.0-12.0)
--- NOTE | 2017-04-05 13:15 | XR ---
EXAMINATION TYPE: XR chest 1V portable DATE OF EXAM: 04/05/2017 COMPARISON: Prior chest x-ray 03/18/2017 HISTORY: Chest pain, renal failure, congestive heart failure TECHNIQUE: Single frontal view of the chest is obtained. FINDINGS: There is increased density at the right lung base, obscured right heart border and hemidia phragm as on prior exam. The heart remains enlarged. No evident pneumothorax. Postop change noted to the right shoulder. Pulmonary vascularity and interstitium are somewhat improved as compared to prior . There is a left-sided PICC line, distal tip overlying the innominate vein. IMPRESSION: There may be some improvement in volume status as compared to previous exam. Persistent right basilar effusion and associated atelectasis versus edema, correlate to exclude pneumonia. Cardi omegaly.
[2017-04-05 13:18] LABS: Potassium 5.1 mmol/L (3.5-5.1); Total Bilirubin 0.7 mg/dL (0.2-1.3); Total Protein 5.3 g/dL (6.3-8.2)
[2017-04-05] MEDS ORDERED: IV VANCOMYCIN PER PHARMACY 1 EACH MISC MISCELLANE PRN (13:23)
[2017-04-05] MEDS ORDERED: CEFEPIME 2 GM in SODIUM CHLORIDE 0.9% 50 ML IVPB STA (13:23)
[2017-04-05 13:30] LABS: Add Differential Manual Differential
[2017-04-05 13:31] LABS: Creatine Kinase <20 U/L (55-170)
[2017-04-05 13:33] LABS: Amorphous Sediment,Urine Few /hpf; Appearance,Urine Cloudy (Clear); Bacteria,Urine Rare /hpf; Bilirubin,Urine Negative (Negative); Glucose,Urine (UA) Negative (Negative); Ketones,Urine Negative (Negative); Leukocyte Esterase,Urine Negative (Negative); Mucus,Urine Rare /hpf; Nitrite,Urine Negative (Negative); PH, Urine 5.5 (5.0-8.0); Particle Count 3100; Protein,Urine 2+ (Negative); RBC,Urine 149 /hpf (0-5); Specific Gravity,Urine 1.011 (1.001-1.035); Squamous Epithelial Cell,Urine 1 /hpf (0-4); UA Billing (MACRO vs. MICRO) MICRO; Urobilinogen,Urine <2.0 mg/dL (<2.0); WBC,Urine 7 /hpf (0-5)
[2017-04-05 13:36] LABS: Band Neutrophils % 1 %; Manual Review Performed; Metamyelocytes % 1 %; Nucleated Red Blood Cells 0 /100 WBC (0-0); Total Cells Counted 200
[2017-04-05 13:44] LABS: Creatine Kinase MB 2.3 ng/mL (0.0-2.4)
[2017-04-05] MEDS ORDERED: VANCOMYCIN 1,500 MG in SODIUM CHLORIDE 0.9% 250 ML IVPB ONE (13:45)
[2017-04-05 13:49] LABS: Troponin I 0.035 ng/mL (0.000-0.034)
[2017-04-05] MEDS ORDERED: NALOXONE 0.4 MG/ML 1 ML VIAL IV PRN (15:49)
[2017-04-05] MEDS ORDERED: ACETAMINOPHEN TAB 325 MG TAB PO PRN (15:49)
[2017-04-05] MEDS ORDERED: LIDOCAINE 2% GEL 30 ML TUBE TOPICAL PRN (20:09)
[2017-04-05] MEDS ORDERED: ALPRAZolam 0.25 MG TAB PO PRN (20:09)
[2017-04-05] MEDS ORDERED: BISACODYL 10 MG SUPP RECTAL PRN (20:09)
[2017-04-05] MEDS ORDERED: CHLORPHEN-HYDROcod 8-10mg/5ml 5 ML ORAL.SYRG PO PRN (20:09)
[2017-04-05] MEDS ORDERED: ATORVASTATIN 10 MG TAB PO SCH (20:15)
[2017-04-05] MEDS: IPRATROPIUM-ALBUTEROL 3 ML NEB INHALATION SCH (21:04)
[2017-04-05] MEDS: CARBAMIDE PEROXIDE 6.5% DROPS 15 ML BTL LEFT EAR SCH (21:31)
[2017-04-05] MEDS: guaiFENesin 600 MG TABLET.ER PO SCH (21:31)
[2017-04-05] MEDS: DOCUSATE 100 MG CAP PO SCH (21:31)
[2017-04-05] MEDS: BENZONATATE 100 MG CAP PO SCH (21:31)
[2017-04-05] MEDS: MONTELUKAST 10 MG TAB PO SCH (21:31)
[2017-04-05] MEDS: ASPIRIN 81 MG PO SCH (21:31)
[2017-04-05] MEDS: MELATONIN 5 MG TABLET PO SCH (21:31)
[2017-04-05] MEDS: FERROUS SULFATE 325 MG TAB PO SCH (21:31)
[2017-04-05] MEDS: CARVEDILOL 6.25 MG TAB PO SCH (21:31)
[2017-04-05] MEDS: PRAMIPEXOLE 1 MG TAB PO SCH (21:31)
[2017-04-05] MEDS: LATANOPROST 0.005% OPHTH DROPS 2.5 ML BTL LEFT EYE SCH (21:32)
[2017-04-05 22:00] LABS: Glucose,Whole Blood 277 mg/dL (75-99)
[2017-04-05] MEDS: INSULIN ASPART 100 UNIT/ML 1 ML 10 ML VIAL SQ SCH (22:13)
[2017-04-06 06:36] LABS: Glucose,Whole Blood 220 mg/dL (75-99)
[2017-04-06 06:46] LABS: Anisocytosis Slight; Basophils # (A) 0.1 k/uL (0-0.2); Basophils % (A) 0 %; CH 27.9; CHCM 31.1; Eosinophils # (A) 0.1 k/uL (0-0.7); Eosinophils % (A) 1 %; HCT 26.9 % (39.0-53.0); HDW 3.11; HGB 8.3 gm/dL (13.0-17.5); Hypochromasia Moderate; Luc # (Auto) 0.31; Luc % (Auto) 1; Lymphocytes # (A) 0.9 k/uL (1.0-4.8); Lymphocytes % (A) 3 %; MCV 90.3 fL (80.0-100.0); Mean Platelet Volume 10.1; Monocytes # (A) 0.7 k/uL (0-1.0); Monocytes % (A) 2 %; Neutrophils # (A) 25.9 k/uL (1.3-7.7); Neutrophils % (A) 93 %; RBC 2.98 m/uL (4.30-5.90); RDW 18.1 % (11.5-15.5); WBC (Perox) 28.27
[2017-04-06] MEDS: INSULIN ASPART 100 UNIT/ML 1 ML 10 ML VIAL SQ SCH ×4 (06:51→23:54)
[2017-04-06] MEDS: BENZONATATE 100 MG CAP PO SCH ×3 (06:51→23:50)
[2017-04-06] MEDS: PANTOPRAZOLE 40 MG TABLET PO SCH (06:51)
[2017-04-06] MEDS: INSULIN NPH 300 UNIT/3 ML VIAL SQ SCH (06:52)
[2017-04-06 06:56] LABS: Calcium 8.4 mg/dL (8.4-10.2); Phosphorous 5.2 mg/dL (2.5-4.5); Potassium 4.9 mmol/L (3.5-5.1); Total Bilirubin 0.7 mg/dL (0.2-1.3); Total Protein 4.7 g/dL (6.3-8.2)
[2017-04-06] MEDS: IPRATROPIUM-ALBUTEROL 3 ML NEB INHALATION SCH ×4 (07:57→19:53)
[2017-04-06 08:00] LABS: Manual Review Performed
[2017-04-06] MEDS: FLUTICASONE 50MCG/SPRAY NASAL 16GM EA NOSTRIL SCH ×2 (08:18→16:00)
[2017-04-06] MEDS: SODIUM CHLORIDE 0.65% NASAL SPRAY 44 ML BTL INTRANASAL SCH ×2 (08:18→16:01)
[2017-04-06] MEDS: CARBAMIDE PEROXIDE 6.5% DROPS 15 ML BTL LEFT EAR SCH ×2 (08:19→23:55)
[2017-04-06] MEDS: BRIMONIDINE TARTRATE 0.2% DROPS 5 ML BTL LEFT EYE SCH ×2 (08:20→16:00)
[2017-04-06] MEDS: TIMOLOL 0.5% OPHTH DROPS 5 ML BTL LEFT EYE SCH ×2 (08:21→16:00)
[2017-04-06] MEDS: LORATADINE 10 MG TAB PO SCH (08:28)
[2017-04-06] MEDS: CALCIUM POLYCARBOPHIL 625 MG TAB PO SCH (08:28)
[2017-04-06] MEDS: LINAGLIPTIN 5 MG TABLET PO SCH (08:28)
[2017-04-06] MEDS: CLOPIDOGREL 75 MG TAB PO SCH (08:28)
[2017-04-06] MEDS: CARVEDILOL 6.25 MG TAB PO SCH ×2 (08:28→16:00)
[2017-04-06] MEDS: FINASTERIDE 5 MG TAB PO SCH (08:28)
[2017-04-06] MEDS: guaiFENesin 600 MG TABLET.ER PO SCH ×2 (08:28→23:49)
[2017-04-06] MEDS: MEGESTROL 400 MG/10 ML CUP PO SCH (08:29)
[2017-04-06] MEDS: GENTAMICIN 0.1% CREAM 15 GM TUBE TOPICAL SCH (08:30)
[2017-04-06] MEDS: TAMSULOSIN 0.4 MG CAP.ER.24H PO SCH (08:30)
[2017-04-06] MEDS ORDERED: VANCOMYCIN 1,250 MG in SODIUM CHLORIDE 0.9% 250 ML IVPB ONE (09:00)
[2017-04-06] MEDS ORDERED: CEFEPIME 1 GM in SODIUM CHLORIDE 0.9% 50 ML IVPB SCH ×2 (09:00)
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
[2017-04-06 11:51] LABS: Glucose,Whole Blood 175 mg/dL (75-99)
--- NOTE | 2017-04-06 12:06 | P.GSCN ---
History of Present Illness Consult date: 04/06/17 Reason for Consult: Urinary retention History of present illness: The patient is an 81-year-old male admitted for evaluation of acute on chronic renal failure. His creatinine had been 66/1.8 on 03/22, 67/2.56 on 04/01, 85/ 4.4 on 04/03 and 57/103 at the time of admission. The patient had an indwelling catheter at the time of admission. I was asked to see the patient for further evaluation. The history is from a conversation with the and review of the hospital records and our office records. Unfortunately the patient is very lethargic and continued to dose off while I was questioning him. The patient has a history of bladder outflow obstruction and has been followed by Dr. Simmons and was last seen in 11/2016. He has bladder outflow obstrustion with a history of urinary retention and did self catherization over 5 years ago. He has a chroniclly elevated post void residual that ranges from 250-400 cc. He had been taking finasteride and alfuzocin. He a was scheduled to see Dr. Simmons again on 04/08. He was hospitalized approximately 2 weeks ago due to exacerbation of congestive heart failure and possible pneumonia and at that time was noted to have a postvoid residual of 300 mL which was treated with placement of an indwelling catheter on 03/16. His catheter was removed on and he was apparently able to void on his own but his postvoid residuals continued to increase. The catheter was inserted again on 04/05 when his postvoid residual was 400 mL. According to the patient's he normally voids every 3-4 hours during the day and once or twice at night. Over the last week he had been on a fluid restriction and apparently had been voiding less frequently. He has a history of urolithiasis but has not had problems reently. Review of Systems ROS unobtainable: due to mental status - Constitutional Reports lethargy - Gastrointestinal Denies constipation Past Medical History Past Medical History: Coronary Artery Disease (CAD), COPD, CVA/TIA, Diabetes Mellitus, Eye Disorder, Hyperlipidemia, Hypertension, Osteoarthritis (OA), Pneumonia, Prostate Disorder, Skin Disorder, Sleep Apnea/CPAP/BIPAP Additional Past Medical History / Comment(s): Legally blind - prosthesis right eye, anemia, CVA 2009 - unsteady walking due to effects of vision, uses walker, inflammatory arthritis, ankle edema, chronic productive cough, rash on and off on arms and stomach due to dermatitis, CAD post PCI of the proximal and mid LAD back in 2013, ischemic cardiomyopathy, diabetes mellitus type 2, osteoarthritis , 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 stated they put idc in 04/01/17 or 04/02/17. History of Any Multi-Drug Resistant Organisms: None Reported Past Surgical History: Adenoidectomy, Heart Catheterization With Stent, Joint Replacement, Tonsillectomy Additional Past Surgical History / Comment(s): Right shoulder replacement, removal of right eye (prosthesis used) 1951, tonsillectomy and adenoidectomy, nodule of the vocal cord back in 2004, right shoulder replacement in 2007 and in 2014, arthroscopic knee surgery bilaterally, carpal tunnel release in 2008 the left hand, cystoscopy due to kidney stones back in 06/19/2010, bilateral cataract surgery in 05/09/2011, temporal artery biopsies 05/15/[address] Krishna, bronchoscopy in 11/08/[address] Bach of that documented Pseudomonas aeruginosa. History of bone marrow biopsy in 2012. EGD and colonoscopy 2015 and 2016 respectively Past Anesthesia/Blood Transfusion Reactions: No Reported Reaction Date of Last Stent Placement:: 03/2014 Smoking Status: Former smoker - Past Family History Sister(s) Family Medical History: Cancer Additional Family Medical History / Comment(s): Patient had 3 sisters and one from lung cancer and was a heavy smoker. Mother Family Medical History: Dementia Additional Family Medical History / Comment(s): Mother at age 97 from Alzheimer dementia. Father Family Medical History: Diabetes Mellitus, Myocardial Infarction (NM) Additional Family Medical History / Comment(s): Father at age 63 from myocardial infarction and he was diabetic. Brother(s) Family Medical History: Cancer, Rheumatoid Arthritis (RA) Additional Family Medical History / Comment(s): Patient has 2 brothers and one had renal cancer status post nephrectomy. The other was diagnosed with rheumatoid arthritis and anemia of chronic inflammatory disorder. Son(s) Family Medical History: No Reported History Additional Family Medical History / Comment(s): Patient has 2 sons with no major medical problems. Medications and Allergies Home Medications Medication Instructions Recorded Confirmed Type Alfuzosin HCl [Uroxatral] 10 mg PO DAILY 11/27/13 04/05/17 History Bimatoprost [Lumigan .01% Ophth 1 drop LEFT EYE HS 11/27/13 04/05/17 History Soln] Brimonidine Tartrate/Timolol 1 drop LEFT EYE BID@0800,1700 11/27/13 04/05/17 History [Combigan 0.2%/0.5% Ophth Soln] Carvedilol [Coreg] 6.25 mg PO BID@0800,1700 11/27/13 04/05/17 History Folic Acid 1 mg PO DAILY@1700 11/27/13 04/05/17 History Simvastatin [Zocor] 10 mg PO MOWEFR 11/27/13 04/05/17 History Magnesium Oxide [Mag-Ox] 400 mg PO DAILY@1700 12/14/13 04/05/17 History Clopidogrel [Plavix] 75 mg PO DAILY 06/04/14 04/05/17 History Omeprazole [PriLOSEC] 20 mg PO DAILY@0600 06/04/14 04/05/17 History Finasteride [Proscar] 5 mg PO DAILY 04/18/15 04/05/17 History Multivitamins, Thera [Multivitamin 1 tab PO DAILY@1700 06/16/15 04/05/17 History (formulary)] Pramipexole Di-HCl [Mirapex] 1 mg PO HS 11/05/16 04/05/17 History Melatonin 10 mg PO HS 03/07/17 04/05/17 History Aspirin EC [Ecotrin Low Dose] 81 mg PO DAILY@1700 03/11/17 04/05/17 History Calcium Polycarbophil [Fibercon] 625 mg PO DAILY 03/11/17 04/05/17 History Docusate [Colace] 100 mg PO HS 03/11/17 04/05/17 History Ferrous Sulfate [Iron (65 MG 650 mg PO HS 03/11/17 04/05/17 History Elemental)] Loratadine [Claritin] 10 mg PO DAILY 03/11/17 04/05/17 History Megestrol [Megace] 400 mg PO DAILY 03/11/17 04/05/17 History Montelukast [Singulair] 10 mg PO HS 03/11/17 04/05/17 History Sodium Chloride [Logan] 1 spray EA NOSTRIL BID@0800,1700 03/11/17 04/05/17 History Vits A,C,E/Lutein/Minerals 1 tab PO DAILY@1700 03/11/17 04/05/17 History [Ocuvite with Lutein Tablet] ALPRAZolam [Xanax] 0.25 mg PO BID PRN #60 tab 03/21/17 04/05/17 Rx Hydrocodone/Chlorphen P-Stirex 5 ml PO Q12HR PRN #60 ml 03/21/17 04/05/17 Rx [Tussionex] Linagliptin [Tradjenta] 5 mg PO BID tablet 03/21/17 04/05/17 Rx Spironolactone [Aldactone] 25 mg PO DAILY tab 03/21/17 04/05/17 Rx guaiFENesin [Mucinex] 600 mg PO Q12HR tablet.er 03/21/17 04/05/17 Rx Ascorbic Acid [Vitamin C] 1,000 mg PO DAILY@1700 04/05/17 04/05/17 History Benzonatate [Tessalon Perles] 100 mg PO TID@0600,1400,2100 04/05/17 04/05/17 History Bisacodyl 10 mg RECTAL DAILY PRN 04/05/17 04/05/17 History Carbamide Peroxide [Debrox Otic] 10 drops LEFT EAR BID 04/05/17 04/05/17 History Fluticasone Nasal Valentine [Flonase 1 spray EA NOSTRIL BID@0800,1700 04/05/1704/05 History Nasal Valentine] Furosemide [Lasix] 40 mg PO Q48H 04/05/17 04/05/17 History Gentamicin Sulfate [Gentamicin 1 applic TOPICAL DAILY 04/05/17 04/05/17 History Sulfate 0.1%] INSULIN LISPRO (humaLOG) [humaLOG] See Protocol SQ ACHS 04/05/17 04/05/17 History Insulin NPH [HumuLIN N] 6 unit SQ DAILY@0700 04/05/17 04/05/17 History Ipratropium-Albuterol Nebulize 3 ml INHALATION RT-QID@08,12,,04/05/1704/05 History [Duoneb 0.5 mg-3 mg/3 ml Soln] Lidocaine 2% Gel [Xylocaine Jelly 1 applic TOPICAL Q4HR PRN 04/05/17 04/05/17 History 2%] Potassium Chloride ER [K-Dur 20] 20 meq PO DAILY@1700 04/05/17 04/05/17 History predniSONE See Taper PO DIRECTED 04/05/17 04/05/17 History Allergies Allergy/AdvReac Type Severity Reaction Status Date / Time codeine AdvReac Nausea & Verified 04/05/17 12:24 Vomiting & Diarrhea POSITIVE TB REACTOR Allergy Unknown Uncoded 04/05/17 12:24 Surgical - Exam Vital Signs Temp Pulse Resp BP Pulse Ox 97.8 F 103 H 20 121/59 98 04/05/17 12:17 04/05/17 12:17 04/05/17 12:17 04/05/17 12:17 04/05/17 12:17 - General no distress, no pain, chronically ill - Respiratory normal respiratory effort - Abdomen Abdomen: soft, no organomegaly - Genitourinary normal penis with no external lesions, other (Indwelling catheters in place and is draining clear urine) Results - Labs 04/06/17 06:08 04/06/17 06:08 Abnormal Lab Results - Last 24 Hours (Table) 04/05/17 04/05/17 04/05/17 Range/Units 12:47 12:47 12:47 WBC 31.3 H* (3.8-10.6) k/uL RBC 3.05 L (4.30-5.90) m/uL Hgb 8.5 L (13.0-17.5) gm/dL Hct 27.2 L (39.0-53.0) % RDW 18.6 H (11.5-15.5) % Plt Count 124 L (150-450) k/uL Neutrophils # (1.3-7.7) k/uL Neutrophils # (Manual) 26.90 H (1.3-7.7) k/uL Lymphocytes # (1.0-4.8) k/uL Monocytes # (Manual) 2.50 H (0-1.0) k/uL Metamyelocytes # (Man) 0.31 H (0) k/uL PT (9.0-12.0) sec INR (<1.2) Sodium 129 L (137-145) mmol/L Chloride 97 L (98-107) mmol/L Carbon Dioxide 17 L (22-30) mmol/L BUN 103 H* (9-20) mg/dL Creatinine 5.70 H* (0.66-1.25) mg/dL Glucose 179 H (74-99) mg/dL POC Glucose (mg/dL) (75-99) mg/dL Phosphorus (2.5-4.5) mg/dL AST 14 L (17-59) U/L Total Creatine Kinase <20 L (55-170) U/L Troponin I 0.035 H* (0.000-0.034) ng/mL Total Protein 5.3 L (6.3-8.2) g/dL Albumin 3.2 L (3.5-5.0) g/dL Urine Protein (Negative) Urine Blood (Negative) Urine RBC (0-5) /hpf Urine WBC (0-5) /hpf Amorphous Sediment (None) /hpf Urine Bacteria (None) /hpf Urine Mucus (None) /hpf 04/05/17 04/05/17 04/05/17 Range/Units 12:47 12:47 21:58 WBC (3.8-10.6) k/uL RBC (4.30-5.90) m/uL Hgb (13.0-17.5) gm/dL Hct (39.0-53.0) % RDW (11.5-15.5) % Plt Count (150-450) k/uL Neutrophils # (1.3-7.7) k/uL Neutrophils # (Manual) (1.3-7.7) k/uL Lymphocytes # (1.0-4.8) k/uL Monocytes # (Manual) (0-1.0) k/uL Metamyelocytes # (Man) (0) k/uL PT 12.3 H (9.0-12.0) sec INR 1.2 H (<1.2) Sodium (137-145) mmol/L Chloride (98-107) mmol/L Carbon Dioxide (22-30) mmol/L BUN (9-20) mg/dL Creatinine (0.66-1.25) mg/dL Glucose (74-99) mg/dL POC Glucose (mg/dL) 277 H (75-99) mg/dL Phosphorus (2.5-4.5) mg/dL AST (17-59) U/L Total Creatine Kinase (55-170) U/L Troponin I (0.000-0.034) ng/mL Total Protein (6.3-8.2) g/dL Albumin (3.5-5.0) g/dL Urine Protein 2+ H (Negative) Urine Blood Moderate H (Negative) Urine RBC 149 H (0-5) /hpf Urine WBC 7 H (0-5) /hpf Amorphous Sediment Few H (None) /hpf Urine Bacteria Rare H (None) /hpf Urine Mucus Rare H (None) /hpf 04/06/17 04/06/17 04/06/17 Range/Units 06:08 06:08 06:28 WBC 28.0 H* (3.8-10.6) k/uL RBC 2.98 L (4.30-5.90) m/uL Hgb 8.3 L (13.0-17.5) gm/dL Hct 26.9 L (39.0-53.0) % RDW 18.1 H (11.5-15.5) % Plt Count 125 L (150-450) k/uL Neutrophils # 25.9 H (1.3-7.7) k/uL Neutrophils # (Manual) (1.3-7.7) k/uL Lymphocytes # 0.9 L (1.0-4.8) k/uL Monocytes # (Manual) (0-1.0) k/uL Metamyelocytes # (Man) (0) k/uL PT (9.0-12.0) sec INR (<1.2) Sodium 128 L (137-145) mmol/L Chloride (98-107) mmol/L Carbon Dioxide 15 L (22-30) mmol/L BUN 102 H* (9-20) mg/dL Creatinine 5.80 H* (0.66-1.25) mg/dL Glucose 192 H (74-99) mg/dL POC Glucose (mg/dL) 220 H (75-99) mg/dL Phosphorus 5.2 H (2.5-4.5) mg/dL AST 12 L (17-59) U/L Total Creatine Kinase (55-170) U/L Troponin I (0.000-0.034) ng/mL Total Protein 4.7 L (6.3-8.2) g/dL Albumin 2.7 L (3.5-5.0) g/dL Urine Protein (Negative) Urine Blood (Negative) Urine RBC (0-5) /hpf Urine WBC (0-5) /hpf Amorphous Sediment (None) /hpf Urine Bacteria (None) /hpf Urine Mucus (None) /hpf Diabetes panel 04/05/17 04/06/17 Range/Units 12:47 06:08 Sodium 129 L 128 L (137-145) mmol/L Potassium 5.1 4.9 (3.5-5.1) mmol/L Chloride 97 L 98 (98-107) mmol/L Carbon Dioxide 17 L 15 L (22-30) mmol/L BUN 103 H* 102 H* (9-20) mg/dL Creatinine 5.70 H* 5.80 H* (0.66-1.25) mg/dL Glucose 179 H 192 H (74-99) mg/dL Calcium 9.0 8.4 (8.4-10.2) mg/dL AST 14 L 12 L (17-59) U/L ALT 23 27 (21-72) U/L Alkaline Phosphatase 62 59 (38-126) U/L Total Protein 5.3 L 4.7 L (6.3-8.2) g/dL Albumin 3.2 L 2.7 L (3.5-5.0) g/dL Calcium panel 04/05/17 04/06/17 Range/Units 12:47 06:08 Calcium 9.0 8.4 (8.4-10.2) mg/dL Phosphorus 5.2 H (2.5-4.5) mg/dL Albumin 3.2 L 2.7 L (3.5-5.0) g/dL Pituitary panel 04/05/17 04/06/17 Range/Units 12:47 06:08 Sodium 129 L 128 L (137-145) mmol/L Potassium 5.1 4.9 (3.5-5.1) mmol/L Chloride 97 L 98 (98-107) mmol/L Carbon Dioxide 17 L 15 L (22-30) mmol/L BUN 103 H* 102 H* (9-20) mg/dL Creatinine 5.70 H* 5.80 H* (0.66-1.25) mg/dL Glucose 179 H 192 H (74-99) mg/dL Calcium 9.0 8.4 (8.4-10.2) mg/dL Adrenal panel 04/05/17 04/06/17 Range/Units 12:47 06:08 Sodium 129 L 128 L (137-145) mmol/L Potassium 5.1 4.9 (3.5-5.1) mmol/L Chloride 97 L 98 (98-107) mmol/L Carbon Dioxide 17 L 15 L (22-30) mmol/L BUN 103 H* 102 H* (9-20) mg/dL Creatinine 5.70 H* 5.80 H* (0.66-1.25) mg/dL Glucose 179 H 192 H (74-99) mg/dL Calcium 9.0 8.4 (8.4-10.2) mg/dL Total Bilirubin 0.7 0.7 (0.2-1.3) mg/dL AST 14 L 12 L (17-59) U/L ALT 23 27 (21-72) U/L Alkaline Phosphatase 62 59 (38-126) U/L Total Protein 5.3 L 4.7 L (6.3-8.2) g/dL Albumin 3.2 L 2.7 L (3.5-5.0) g/dL Assessment and Plan (1) Incomplete bladder emptying Narrative/Plan: Impression: Chronic incomplete bladder emptying-most likely related to underlying bladder outflow obstruction from prostatic enlargement. The patient has been treated with finasteride and alpha blockers and due to his cardiopulmonary disease is unfortunately not a candidate for surgical treatment with TURP. For the time being be reasonable to leave the patient's catheter in place, at least until his renal function has stabilized. The patient has been seen by Dr. Simmons in the past and can follow up with him next week. Current Visit: Yes Status: Acute Code(s): R33.9 - RETENTION OF URINE, UNSPECIFIED SNOMED Code(s): 509054172
--- NOTE | 2017-04-06 13:51 | CONS ---
CONSULTATION REASON FOR CONSULT: Renal failure. HISTORY OF PRESENT ILLNESS: The patient is an 81-year-old male who [facility] with a history of abnormal labs and worsening renal function. The patient has a serum creatinine was at 5.7 mg/dL on 04/05. It is at 5.8 today. His previous creatinine was about 1.9-1.8 on 03/25 and 03/29. He has started to go up to 2.56 on April 01 and 4.4 on April 03. According to his , the patient had some diarrhea. He initially was doing well after discharge from the hospital on his last admission and then started slowly to decline. She states that he had not been eating much for the last couple of days prior to admission. Medications prior to admission, the patient was not on any GEOFFREY inhibitors. He was maintained on Lasix 40 mg every 2 days. He has had kidney stones. The patient apparently had his Aceves catheter removed a few days ago and then it was reinserted on 04/05. A postvoid was noted to be about 400 mL. His blood pressure has not been low. It is about 120-130 mmHg systolic. Currently patient has had good urine output in his Aceves catheter and he is maintained on IV fluids. PAST MEDICAL HISTORY: Coronary artery disease, ischemic cardiomyopathy, history of rheumatoid arthritis on Rituxan, type 2 diabetes with neuropathy, nephrolithiasis, history of CVA, COPD, acute kidney injury during last admission, which has started to improve. The patient is also legally blind with prosthesis in the right eye. He has obstructive sleep apnea, vocal cord nodules, status post surgery. He has an enlarged prostate and GERD. PAST SURGICAL HISTORY: Right shoulder arthroplasty, tonsillectomy, adenoidectomy, removal of nodule on the vocal cord, arthroscopic knee surgery bilaterally, carpal tunnel release in the left hand, cystoscopy, cataract surgery, bronchoscopy, history of bone marrow biopsy, EGD, colonoscopy. SOCIAL HISTORY: Currently patient is at [facility] from his last hospitalization. MEDICATIONS: Prior to admission included Uroxatral, Coreg, Zocor, Plavix, Mag-Ox, Prilosec, Proscar, Mirapex, aspirin, melatonin, Colace, Claritin, Megace, Singulair, Xanax, Tradjenta, Aldactone, Mucinex, vitamin C, bisacodyl, Lasix, insulin, potassium, prednisone. ALLERGIES: CODEINE AND PPD. EXAMINATION: Currently patient is comfortable. He is not in any acute distress. He answered simple questions. Patient's is present at bedside. Blood pressure this morning 115/67, heart rate 89 per minute. He is afebrile. Examination of the heart S1, S2. Examination lungs bilateral breath sounds are heard. Abdomen is soft, nontender. Examination lower extremities shows no evidence of edema. [employer]ING [employer]TE[employer] TECH[employer]ICIAN exam is grossly intact. LAB: Show sodium 128, potassium 4.9, CO2 is 15, BUN 102, serum creatinine 5.8, hemoglobin 8.3 g/dL, white cell count elevated at 28,000. UA shows 2+ protein, RBCs 149, WBC 7, moderate blood. Random vancomycin level was at 11.2. ASSESSMENT: 1. Acute kidney injury, most likely from urine retention. We will check an ultrasound of the kidneys. A Aceves catheter has been replaced. The patient has fair amount of urine output. He may also be volume depleted and he is maintained on IV fluids. Currently, he is not on any nephrotoxic medications. We will repeat labs in a.m. The vancomycin level was not elevated. Consider switching to another antibiotic given the advanced renal failure. 2. Benign prostatic hypertrophy. 3. Pneumonia on recent admission. The patient had MSSA and Pseudomonas. 4. Coronary artery disease, history of coronary stenting. 5. Cardiomyopathy with ejection fraction at 50-55% on echo on 03/12/2017 with severely dilated left atrium. Mild pulmonary hypertension was noted. PLAN: Maintain Aceves catheter. Repeat labs in a.m. Continue hydration. Check ultrasound of the kidneys to document obstructive uropathy. Thank you for this consultation. We will continue to follow the patient with you during his hospitalization. MMODL / IJN: [id number] /
--- NOTE | 2017-04-06 14:10 | US ---
EXAMINATION TYPE: US renals and bladder DATE OF EXAM: 04/06/2017 COMPARISON: NONE CLINICAL HISTORY: rf. Renal failure EXAM MEASUREMENTS: Right Kidney: 10.8 x 4.9 x 5.7 cm Left Kidney: 12.3 x 6.7 x 6.4 cm Right Kidney: No evidence of hydro, Two cysts lateral, largest= 2.8 x 2.7 x 2.7 cm/ Multiple renal ca lculi lower pole, largest= 0.8 cm Left Kidney: No evidence of hydro, possible calculus lower pole= 0.7 cm Bladder: Cath in place Incidental finding of scant amount of ascites, gallstones, and enlarged slpeen IMPRESSION: 1. NO EVIDENCE OF HYDRONEPHROSIS. 2. SIMPLE APPEARING RIGHT RENAL CYSTS. 3. ASCITES. 4. CHOLELITHIASIS. 5. QUESTIONABLE, NONOBSTRUCTING, 7 MM LEFT LOWER POLE RENAL CALCULUS.
--- NOTE | 2017-04-06 14:22 | P.CNPUL ---
History of Present Illness Consult date: 04/06/17 Requesting physician: Heladio Drake Reason for consult: abnormal CXR/CT Chief complaint: Progressive weakness History of present illness: This is a pleasant 81-year-old gentleman who follows with Dr. Hassan as his primary care physician. He has a history of coronary artery disease with stent placement to the LAD, ischemic cardiomyopathy, rheumatoid arthritis, CVA/TIA, diabetes eyes, legally blind, hyperlipidemia, hypertension, sleep apnea. He also has a history of chronic obstructive pulmonary disease and FEV1 value of 82 % of predicted and follows with Dr. Granados in our office for the same. He has had previous pseudomonas aeruginosa lung infection in October 2016. The patient was recently discharged from here to [facility] on 06/2016 after being treated for congestive heart failure and pneumonia. His sputum was positive for MSSA. He had been doing fairly well there according to his . He did develop some increasing weakness and dehydration. He was found to have a creatinine level of 5.7 with a previous baseline of 1.6. He was admitted here for the same. Seen today in consultation on the selective care unit. He is awake and alert in no acute distress. His is at the bedside who gives most of the history. His chest x-ray reveals sexual improved volume status compared to the previous on 03/18/2017. There is persistent right basilar effusion with associated atelectasis. He has been afebrile since admission. He is maintaining O2 saturations in the mid 90s on 2 L/m per nasal cannula. He's been hemodynamically stable. Initial white count 31.3 currently 28.0 hemoglobin 8.3, 125,000 sodium 128, BUN 102 creatinine 5.80. Review of Systems REVIEW OF SYSTEMS: CONSTITUTIONAL: Proggressive weakness. Denies any recent significant weight loss or weight gain. EYES: Chronic decreased vision.. EARS, NOSE, MOUTH, THROAT: Denies headaches, denies sore throat. CARDIOVASCULAR: Denies chest pain, palpitations or syncopal episodes. RESPIRATORY: Denies shortness of breath, cough, congestion or hemoptysis. GASTROINTESTINAL: Denies change in appetite, denies abdominal pain GENITOURINARY: Denies hematuria, denies infections. MUSCULOSKELETAL: Denies pain, denies swelling. INTEGUMENTARY: Denies rash, denies eczema. NEUROLOGICAL: Denies recent memory loss, no recent seizure activity. PSYCHIATRIC: Denies anxiety, denies depression. HEMATOLOGIC/LYMPHATIC: Denies anemia, denies enlarged lymph nodes. Past Medical History Past Medical History: Coronary Artery Disease (CAD), COPD, CVA/TIA, Diabetes Mellitus, Eye Disorder, Hyperlipidemia, Hypertension, Osteoarthritis (OA), Pneumonia, Prostate Disorder, Skin Disorder, Sleep Apnea/CPAP/BIPAP Additional Past Medical History / Comment(s): Legally blind - prosthesis right eye, anemia, CVA 2009 - unsteady walking due to effects of vision, uses walker, inflammatory arthritis, ankle edema, chronic productive cough, rash on and off on arms and stomach due to dermatitis, CAD post PCI of the proximal and mid LAD back in 2013, ischemic cardiomyopathy, diabetes mellitus type 2, osteoarthritis , 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 stated they put idc in 04/01/17 or 04/02/17. History of Any Multi-Drug Resistant Organisms: None Reported Past Surgical History: Adenoidectomy, Heart Catheterization With Stent, Joint Replacement, Tonsillectomy Additional Past Surgical History / Comment(s): Right shoulder replacement, removal of right eye (prosthesis used) 1951, tonsillectomy and adenoidectomy, nodule of the vocal cord back in 2004, right shoulder replacement in 2007 and in 2014, arthroscopic knee surgery bilaterally, carpal tunnel release in 2008 the left hand, cystoscopy due to kidney stones back in 06/19/2010, bilateral cataract surgery in 05/09/2011, temporal artery biopsies 05/15/[address] Krishna, bronchoscopy in 11/08/[address] Bach of that documented Pseudomonas aeruginosa. History of bone marrow biopsy in 2012. EGD and colonoscopy 2015 and 2016 respectively Past Anesthesia/Blood Transfusion Reactions: No Reported Reaction Date of Last Stent Placement:: 03/2014 Smoking Status: Former smoker - Past Family History Sister(s) Family Medical History: Cancer Additional Family Medical History / Comment(s): Patient had 3 sisters and one from lung cancer and was a heavy smoker. Mother Family Medical History: Dementia Additional Family Medical History / Comment(s): Mother at age 97 from Alzheimer dementia. Father Family Medical History: Diabetes Mellitus, Myocardial Infarction ([place]) Additional Family Medical History / Comment(s): Father at age 63 from myocardial infarction and he was diabetic. Brother(s) Family Medical History: Cancer, Rheumatoid Arthritis (RA) Additional Family Medical History / Comment(s): Patient has 2 brothers and one had renal cancer status post nephrectomy. The other was diagnosed with rheumatoid arthritis and anemia of chronic inflammatory disorder. Son(s) Family Medical History: No Reported History Additional Family Medical History / Comment(s): Patient has 2 sons with no major medical problems. Medications and Allergies Home Medications Medication Instructions Recorded Confirmed Type Alfuzosin HCl [Uroxatral] 10 mg PO DAILY 11/27/13 04/05/17 History Bimatoprost [Lumigan .01% Ophth 1 drop LEFT EYE HS 11/27/13 04/05/17 History Soln] Brimonidine Tartrate/Timolol 1 drop LEFT EYE BID@0800,1700 11/27/13 04/05/17 History [Combigan 0.2%/0.5% Ophth Soln] Carvedilol [Coreg] 6.25 mg PO BID@0800,1700 11/27/13 04/05/17 History Folic Acid 1 mg PO DAILY@0 11/27/13 04/05/17 History Simvastatin [Zocor] 10 mg PO MOWEFR 11/27/13 04/05/17 History Magnesium Oxide [Mag-Ox] 400 mg PO DAILY@1700 12/14/13 04/05/17 History Clopidogrel [Plavix] 75 mg PO DAILY 06/04/14 04/05/17 History Omeprazole [PriLOSEC] 20 mg PO DAILY@0600 06/04/14 04/05/17 History Finasteride [Proscar] 5 mg PO DAILY 04/18/15 04/05/17 History Multivitamins, Thera [Multivitamin 1 tab PO DAILY@1700 06/16/15 04/05/17 History (formulary)] Pramipexole Di-HCl [Mirapex] 1 mg PO HS 11/05/16 04/05/17 History Melatonin 10 mg PO HS 03/07/17 04/05/17 History Aspirin EC [Ecotrin Low Dose] 81 mg PO DAILY@1700 03/11/17 04/05/17 History Calcium Polycarbophil [Fibercon] 625 mg PO DAILY 03/11/17 04/05/17 History Docusate [Colace] 100 mg PO HS 03/11/17 04/05/17 History Ferrous Sulfate [Iron (65 MG 650 mg PO HS 03/11/17 04/05/17 History Elemental)] Loratadine [Claritin] 10 mg PO DAILY 03/11/17 04/05/17 History Megestrol [Megace] 400 mg PO DAILY 03/11/17 04/05/17 History Montelukast [Singulair] 10 mg PO HS 03/11/17 04/05/17 History Sodium Chloride [[place]] 1 spray EA NOSTRIL BID@0800,1700 03/11/17 04/05/17 History Vits A,C,E/Lutein/Minerals 1 tab PO DAILY@1700 03/11/17 04/05/17 History [Ocuvite with Lutein Tablet] ALPRAZolam [Xanax] 0.25 mg PO BID PRN #60 tab 03/21/17 04/05/17 Rx Hydrocodone/Chlorphen P-Stirex 5 ml PO Q12HR PRN #60 ml 03/21/17 04/05/17 Rx [Tussionex] Linagliptin [Tradjenta] 5 mg PO BID tablet 03/21/17 04/05/17 Rx Spironolactone [Aldactone] 25 mg PO DAILY tab 03/21/17 04/05/17 Rx guaiFENesin [Mucinex] 600 mg PO Q12HR tablet.er 03/21/17 04/05/17 Rx Ascorbic Acid [Vitamin C] 1,000 mg PO DAILY@1700 04/05/17 04/05/17 History Benzonatate [Tessalon Perles] 100 mg PO TID@0600,1400,2100 04/05/17 04/05/17 History Bisacodyl 10 mg RECTAL DAILY PRN 04/05/17 04/05/17 History Carbamide Peroxide [Debrox Otic] 10 drops LEFT EAR BID 04/05/17 04/05/17 History Fluticasone Nasal [place] [Flonase 1 spray EA NOSTRIL BID@0800,1700 04/05/1704/05 History Nasal [place]] Furosemide [Lasix] 40 mg PO Q48H 04/05/17 04/05/17 History Gentamicin Sulfate [Gentamicin 1 applic TOPICAL DAILY 04/05/17 04/05/17 History Sulfate 0.1%] INSULIN LISPRO (humaLOG) [humaLOG] See Protocol SQ ACHS 04/05/17 04/05/17 History Insulin NPH [HumuLIN N] 6 unit SQ DAILY@0700 04/05/17 04/05/17 History Ipratropium-Albuterol Nebulize 3 ml INHALATION RT-QID@,,,04/05/1704/05 History [Duoneb 0.5 mg-3 mg/3 ml Soln] Lidocaine 2% Gel [Xylocaine Jelly 1 applic TOPICAL Q4HR PRN 04/05/17 04/05/17 History 2%] Potassium Chloride ER [K-Dur 20] 20 meq PO DAILY@1700 04/05/17 04/05/17 History predniSONE See Taper PO DIRECTED 04/05/17 04/05/17 History Allergies Allergy/AdvReac Type Severity Reaction Status Date / Time codeine AdvReac Nausea & Verified 04/05/17 12:24 Vomiting & Diarrhea POSITIVE TB REACTOR Allergy Unknown Uncoded 04/05/17 12:24 Physical Exam Vitals: Vital Signs Temp Pulse Pulse Resp BP BP Pulse Ox 04/06/17 11:32 84 04/06/17 11:21 80 04/06/17 08:06 100 04/06/17 08:00 98.9 F 89 18 116/67 95 04/06/17 07:57 96 04/06/17 03:25 97.5 F L 86 18 139/72 96 04/06/17 00:00 98.0 F 80 20 135/73 96 04/05/17 22:22 98.0 F 101 H 20 126/65 97 04/05/17 21:15 98 04/05/17 21:06 98 04/05/17 16:55 97.7 F 99 17 148/68 95 04/05/17 15:17 97.7 F 87 18 131/74 95 04/05/17 14:02 98.8 F 92 18 140/64 99 Intake and Output 04/05/17 04/06/17 04/06/17 22:59 06:59 14:59 Intake Total 540 540 Output Total 450 300 0 Balance 90 -300 540 Intake: Intake, IV Titration 300 Amount Sodium Chloride 0.9% 1, 300 000 ml @ 75 mls/hr IV . [id number] STA Rx#:[id number] Oral 240 540 Output: Urine 450 300 0 Other: Voiding Method Indwelling Catheter Indwelling Catheter Indwelling Catheter Weight 73.5 kg GENERAL EXAM: Alert, comfortable in no apparent distress. HEAD: Normocephalic. EYES: Right eye prosthesis, decreased vision of the left eye. Legally blind. NOSE: Clear with pink turbinates. THROAT: No erythema or exudates. NECK: No masses, no JVD. CHEST: No chest wall deformity. LUNGS: Equal air entry with no crackles, wheeze, rhonchi or dullness. CVS: S1 and S2 normal with systolic murmur, regular rhythm. ABDOMEN: No hepatosplenomegaly, normal bowel sounds, no guarding or rigidity. SPINE: No scoliosis or deformity SKIN: No rashes CENTRAL NERVOUS SYSTEM: No focal deficits, tone is normal in all 4 extremities. EXTREMITIES: There is no peripheral edema. No clubbing, no cyanosis. Peripheral pulses are intact. Results - Laboratory Findings CBC and BMP: 04/06/17 06:08 04/06/17 06:08 PT/INR, D-dimer PT 12.3 sec (9.0-12.0) H 04/05/17 12:47 INR 1.2 (<1.2) H 04/05/17 12:47 Abnormal lab findings: Abnormal Labs 04/05/17 04/05/17 04/05/17 12:47 12:47 12:47 WBC 31.3 H* RBC 3.05 L Hgb 8.5 L Hct 27.2 L RDW 18.6 H Plt Count 124 L Neutrophils # Neutrophils # (Manual) 26.90 H Lymphocytes # Monocytes # (Manual) 2.50 H Metamyelocytes # (Man) 0.31 H PT INR Sodium 129 L Chloride 97 L Carbon Dioxide 17 L BUN 103 H* Creatinine 5.70 H* Glucose 179 H POC Glucose (mg/dL) Phosphorus AST 14 L Total Creatine Kinase <20 L Troponin I 0.035 H* Total Protein 5.3 L Albumin 3.2 L Urine Protein Urine Blood Urine RBC Urine WBC Amorphous Sediment Urine Bacteria Urine Mucus 04/05/17 04/05/17 04/05/17 12:47 12:47 21:58 WBC RBC Hgb Hct RDW Plt Count Neutrophils # Neutrophils # (Manual) Lymphocytes # Monocytes # (Manual) Metamyelocytes # (Man) PT 12.3 H INR 1.2 H Sodium Chloride Carbon Dioxide BUN Creatinine Glucose POC Glucose (mg/dL) 277 H Phosphorus AST Total Creatine Kinase Troponin I Total Protein Albumin Urine Protein 2+ H Urine Blood Moderate H Urine RBC 149 H Urine WBC 7 H Amorphous Sediment Few H Urine Bacteria Rare H Urine Mucus Rare H 04/06/17 04/06/17 04/06/17 06:08 06:08 06:28 WBC 28.0 H* RBC 2.98 L Hgb 8.3 L Hct 26.9 L RDW 18.1 H Plt Count 125 L Neutrophils # 25.9 H Neutrophils # (Manual) Lymphocytes # 0.9 L Monocytes # (Manual) Metamyelocytes # (Man) PT INR Sodium 128 L Chloride Carbon Dioxide 15 L BUN 102 H* Creatinine 5.80 H* Glucose 192 H POC Glucose (mg/dL) 220 H Phosphorus 5.2 H AST 12 L Total Creatine Kinase Troponin I Total Protein 4.7 L Albumin 2.7 L Urine Protein Urine Blood Urine RBC Urine WBC Amorphous Sediment Urine Bacteria Urine Mucus 04/06/17 11:49 WBC RBC Hgb Hct RDW Plt Count Neutrophils # Neutrophils # (Manual) Lymphocytes # Monocytes # (Manual) Metamyelocytes # (Man) PT INR Sodium Chloride Carbon Dioxide BUN Creatinine Glucose POC Glucose (mg/dL) 175 H Phosphorus AST Total Creatine Kinase Troponin I Total Protein Albumin Urine Protein Urine Blood Urine RBC Urine WBC Amorphous Sediment Urine Bacteria Urine Mucus - Diagnostic Findings Chest x-ray: image reviewed Assessment and Plan Assessment: Impression: #1 Progressive weakness secondary to severe dehydration and acute renal failure. #2 Acute renal failure secondary to diuretics and fluid restriction with a presenting accident of 5.7. Baseline 1.6. #3 History of MSSA in the sputum February 2017, pseudomonal lung infection in November 2016. #4 Chronic obstructive pulmonary disease, currently inactive and stable. #5 Legally blind. Gait dysfunction and poor balance. #6 Coronary artery disease with previous stenting to the LAD. #7 History of diastolic congestive heart failure. #8 Diabetes mellitus, type II. #9 Benign prostatic hypertrophy. #10 Hypertension. #11 Rheumatoid arthritis. #12 Hyperlipidemia. #13 Chronic sinusitis. #14 Poor overall functional performance based on the above-mentioned multiple comorbidities. Thank you: The patient was seen and evaluated by Dr. Granados. His chest x-ray and labs were reviewed. X-ray findings are most likely chronic in nature and x-ray show improvement compared to his previous hospitalization. Some changes and atelectasis in the right lung base. No pulmonary complaints currently. We will de-escalate his antibiotics. Continue current medications. We'll continue to follow. I performed a history & physical examination of the patient. Lung sounds are clear anteriorly faint crackles in the right posterior base.. Diminished. I discussed their management with my nurse practitioner, Essie Vance. I reviewed the nurse practitioner's note and agree with the documented findings and plan of care. Time with Patient: Greater than 30
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
[2017-04-06] MEDS: ASPIRIN 81 MG PO SCH (16:01)
[2017-04-06 16:57] LABS: Glucose,Whole Blood 242 mg/dL (75-99)
[2017-04-06] MEDS ORDERED: POTASSIUM CHLORIDE ER 20 MEQ TAB.ER PO SCH (17:00)
[2017-04-06] MEDS ORDERED: FOLIC ACID 1 MG TAB PO SCH (17:00)
[2017-04-06] MEDS ORDERED: MAGNESIUM OXIDE 400 MG TAB PO SCH (17:00)
[2017-04-06] MEDS ORDERED: ASCORBIC ACID 500 MG TAB PO SCH (17:00)
[2017-04-06] MEDS ORDERED: VIT A,C & E-LUTEIN-MINERALS 1 EACH TAB PO SCH (17:00)
[2017-04-06] MEDS ORDERED: MULTIVITAMINS, THERA 1 EACH TAB PO SCH (17:00)
[2017-04-06 20:50] LABS: Glucose,Whole Blood 122 mg/dL (75-99)
[2017-04-06] MEDS: HEPARIN SODIUM,PORCINE 5,000 UNIT/ML 1 ML VIAL SQ SCH (21:30)
[2017-04-06] MEDS: PRAMIPEXOLE 1 MG TAB PO SCH (21:30)
[2017-04-06] MEDS: DOCUSATE 100 MG CAP PO SCH (23:49)
[2017-04-06] MEDS: FERROUS SULFATE 325 MG TAB PO SCH (23:49)
[2017-04-06] MEDS: MELATONIN 5 MG TABLET PO SCH (23:51)
[2017-04-06] MEDS: LATANOPROST 0.005% OPHTH DROPS 2.5 ML BTL LEFT EYE SCH (23:53)
[2017-04-06] MEDS: MONTELUKAST 10 MG TAB PO SCH (23:57)
[2017-04-07 06:12] LABS: Glucose,Whole Blood 132 mg/dL (75-99)
[2017-04-07 06:24] LABS: Anisocytosis Slight; CH 27.7; CHCM 30.5; HCT 29.5 % (39.0-53.0); HGB 8.9 gm/dL (13.0-17.5); Hypochromasia Marked; MCH 27.7 pg (25.0-35.0); MCHC 30.3 g/dL (31.0-37.0); MCV 91.5 fL (80.0-100.0); Mean Platelet Volume 9.9; RBC 3.22 m/uL (4.30-5.90); RDW 18.1 % (11.5-15.5)
[2017-04-07 06:27] LABS: Calcium 8.6 mg/dL (8.4-10.2); Phosphorous 4.5 mg/dL (2.5-4.5)
[2017-04-07 06:33] LABS: WBC 32.1 k/uL (3.8-10.6)
[2017-04-07] MEDS: PANTOPRAZOLE 40 MG TABLET PO SCH (06:41)
[2017-04-07] MEDS: BENZONATATE 100 MG CAP PO SCH ×2 (06:41→14:24)
[2017-04-07] MEDS: IPRATROPIUM-ALBUTEROL 3 ML NEB INHALATION SCH ×3 (07:11→15:26)
[2017-04-07] MEDS: BRIMONIDINE TARTRATE 0.2% DROPS 5 ML BTL LEFT EYE SCH (07:46)
[2017-04-07] MEDS: SODIUM CHLORIDE 0.65% NASAL SPRAY 44 ML BTL INTRANASAL SCH (07:46)
[2017-04-07] MEDS: TIMOLOL 0.5% OPHTH DROPS 5 ML BTL LEFT EYE SCH (07:46)
[2017-04-07] MEDS: GENTAMICIN 0.1% CREAM 15 GM TUBE TOPICAL SCH (07:46)
[2017-04-07] MEDS: FLUTICASONE 50MCG/SPRAY NASAL 16GM EA NOSTRIL SCH (07:46)
[2017-04-07] MEDS: INSULIN NPH 300 UNIT/3 ML VIAL SQ SCH (07:47)
[2017-04-07] MEDS: INSULIN ASPART 100 UNIT/ML 1 ML 10 ML VIAL SQ SCH ×2 (07:47→14:25)
[2017-04-07] MEDS: HEPARIN SODIUM,PORCINE 5,000 UNIT/ML 1 ML VIAL SQ SCH (07:48)
[2017-04-07] MEDS: CARBAMIDE PEROXIDE 6.5% DROPS 15 ML BTL LEFT EAR SCH (08:48)
[2017-04-07] MEDS ORDERED: HALOPERIDOL LACTATE 5 MG/ML 1 ML VIAL IVP PRN ×2 (08:58→11:51)
[2017-04-07] MEDS ORDERED: CEFEPIME 1 GM in SODIUM CHLORIDE 0.9% 50 ML IVPB SCH (09:00)
[2017-04-07] MEDS: CARVEDILOL 6.25 MG TAB PO SCH (10:44)
[2017-04-07] MEDS: LINAGLIPTIN 5 MG TABLET PO SCH (10:44)
[2017-04-07] MEDS: LORATADINE 10 MG TAB PO SCH (10:44)
[2017-04-07] MEDS: CALCIUM POLYCARBOPHIL 625 MG TAB PO SCH (10:44)
[2017-04-07] MEDS: CLOPIDOGREL 75 MG TAB PO SCH (10:44)
[2017-04-07] MEDS: guaiFENesin 600 MG TABLET.ER PO SCH (10:44)
[2017-04-07] MEDS: MEGESTROL 400 MG/10 ML CUP PO SCH (10:44)
[2017-04-07] MEDS: TAMSULOSIN 0.4 MG CAP.ER.24H PO SCH (10:44)
[2017-04-07] MEDS: FINASTERIDE 5 MG TAB PO SCH (10:44)
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
--- NOTE | 2017-04-07 11:06 | P.PN ---
Subjective Progress Note Date: 04/07/17 Principal diagnosis: Dehydration and renal failure Progress note dated 04/07/2017 This is a 81-year-old male who was minute with a diagnosis of progressive weakness and dehydration with acute renal failure. The renal failure was secondary to diuretics and fluid restriction. He has a previous history of MSSA infection as well as pseudomonal lung infection. In addition, he has a history of COPD, blindness, CAD with previous stenting, diastolic CHF, diabetes mellitus, BPH, hypertension, rheumatoid arthritis, hyperlipidemia, chronic sinus disease, and general medical debility. His x-ray from yesterday looked improved compared to previous x-rays and we did not feel the patient really had an active infection. We'll allow the infectious disease doctor decide whether or not he needs any antibiotics. We did recommended holding of his diuretics. The patient looks about the same to me. Very weak and lethargic. I do feel like the has a unrealistic expectation for anastomosis. He's been in and out of the hospital recently many times. Objective - Vital Signs Vital signs: Vital Signs Temp 98.9 F 04/07/17 08:00 Pulse 80 04/07/17 10:59 Resp 20 04/07/17 08:00 BP 136/68 04/07/17 08:00 Pulse Ox 94 L 04/07/17 08:00 Intake & Output 04/06/17 04/07/17 04/07/17 18:59 06:59 18:59 Intake Total 1040 Output Total 500 650 Balance 540 -650 Weight 74 kg Intake: Intake, IV Titration 500 Amount Cefepime 1 gm In Sodium 100 Chloride 0.9% 50 ml @ 100 mls/hr IVPB Q24H DARIANA Rx# :[id number] Sodium Chloride 0.9% 1, 400 000 ml @ 75 mls/hr IV . [id number] STA Rx#:[id number] Oral 540 Output: Urine 500 650 Other: Voiding Method Indwelling Catheter Indwelling Catheter Indwelling Catheter # Voids 1 - Exam No acute distress, oriented 2 HEENT examination is grossly unremarkable. Mucous membranes are moist. No oral lesions. Neck supple. Full range of motion. No adenopathy thyromegaly or neck vein distention. Cardiovascular examination reveals regular rhythm rate. S1-S2 normal. Soft systolic murmur noted. Lungs reveal diminished breath sounds. A few scattered rhonchi. No wheezes. Maybe a few crackles.. Abdomen soft bowel sounds are heard. No masses or tenderness. Extremities are intact. No cyanosis clubbing or edema. Skin is without rash or lesion. Neurologic examination is brief but nonfocal. - Labs CBC & Chem 7: 04/07/17 05:23 04/07/17 05:23 Labs: Abnormal Lab Results - Last 24 Hours (Table) 04/06/17 04/06/17 04/06/17 Range/Units 11:49 16:55 20:47 WBC (3.8-10.6) k/uL RBC (4.30-5.90) m/uL Hgb (13.0-17.5) gm/dL Hct (39.0-53.0) % MCHC (31.0-37.0) g/dL RDW (11.5-15.5) % Plt Count (150-450) k/uL Sodium (137-145) mmol/L Carbon Dioxide (22-30) mmol/L BUN (9-20) mg/dL Creatinine (0.66-1.25) mg/dL Glucose (74-99) mg/dL POC Glucose (mg/dL) 175 H 242 H 122 H (75-99) mg/dL 04/07/17 04/07/17 04/07/17 Range/Units 05:23 05:23 06:10 WBC 32.1 H* (3.8-10.6) k/uL RBC 3.22 L (4.30-5.90) m/uL Hgb 8.9 L (13.0-17.5) gm/dL Hct 29.5 L (39.0-53.0) % MCHC 30.3 L (31.0-37.0) g/dL RDW 18.1 H (11.5-15.5) % Plt Count 133 L (150-450) k/uL Sodium 131 L (137-145) mmol/L Carbon Dioxide 15 L (22-30) mmol/L BUN 101 H* (9-20) mg/dL Creatinine 5.80 H* (0.66-1.25) mg/dL Glucose 120 H (74-99) mg/dL POC Glucose (mg/dL) 132 H (75-99) mg/dL Microbiology - Last 24 Hours (Table) 04/05/17 12:47 Blood Culture - Preliminary Blood No Growth after 24 hours Assessment and Plan (1) Acute on chronic renal failure Current Visit: Yes Status: Acute Code(s): N17.9 - ACUTE KIDNEY FAILURE, UNSPECIFIED; N18.9 - CHRONIC KIDNEY DISEASE, UNSPECIFIED SNOMED Code(s): 587077493 (2) Healthcare-associated pneumonia Current Visit: Yes Status: Acute Code(s): J18.9 - PNEUMONIA, UNSPECIFIED ORGANISM SNOMED Code(s): 160085668 (3) Incomplete bladder emptying Current Visit: Yes Status: Acute Code(s): R33.9 - RETENTION OF URINE, UNSPECIFIED SNOMED Code(s): 577306936 (4) Acute exacerbation of CHF (congestive heart failure) Current Visit: No Status: Acute Code(s): I50.9 - HEART FAILURE, UNSPECIFIED SNOMED Code(s): 23494476 (5) Anemia Current Visit: No Status: Acute Code(s): D64.9 - ANEMIA, UNSPECIFIED SNOMED Code(s): 362919660 (6) Fall Current Visit: No Status: Acute Code(s): W19.XXXA - UNSPECIFIED FALL, INITIAL ENCOUNTER SNOMED Code(s): 4122953 (7) Pneumonia Current Visit: No Status: Acute Code(s): J18.9 - PNEUMONIA, UNSPECIFIED ORGANISM SNOMED Code(s): 211776535 (8) Pseudomonas infection Current Visit: No Status: Acute Code(s): B96.5 - PSEUDOMONAS (MALLEI) CAUSING DISEASES CLASSD [facility] SNOMED Code(s): 61354343 (9) Renal insufficiency Current Visit: No Status: Acute Code(s): N28.9 - DISORDER OF KIDNEY AND URETER, UNSPECIFIED SNOMED Code(s): 285471609 Plan: Plan dated 04/07/2017 The patient's doing about the same today as he did yesterday. Very sleepy and lethargic. The patient's head of bed should be elevated all times. I believe his high risk for aspiration. We will await ID input and also input from nephrology. From our perspective his lung examination is stable. His chest x- rays improved. No really feel like he needs antibiotics at this time. We'll allow infectious disease to make that decision. No additional recommendations are made. Time with Patient: Less than 30
[2017-04-07 12:03] LABS: Glucose,Whole Blood 212 mg/dL (75-99)
[2017-04-07 13:43] VITALS: RESP 21; TEMP 97.1
[2017-04-07 14:47] LABS: INR 1.5 (<1.2); Prothrombin Time 14.6 sec (9.0-12.0)
--- NOTE | 2017-04-07 14:50 | PN ---
PROGRESS NOTE Patient is seen this morning. His is present at his bedside. She is tearful. His mental condition has deteriorated since yesterday. The patient has also received Haldol since he was quite agitated. Yesterday he did communicate with me and answer simple questions. Today, he is barely arousable. Renal function has not improved. Serum creatinine is still at 5.8 mg/dL. The patient is maintained on IV fluids. He has had a total urine output of 1150 mL for 24 hours. I have discussed the dialysis with her and she states that she will discuss it with her sons and let us know. Patient's is upset about the fluid restriction which she feels caused his renal failure. I have tried to explain to her that during his admission, he was fluid overloaded and that is why he needed fluid restriction. In any case, if they decide to proceed with renal replacement therapy, we will dialyze him today. EXAMINATION: The patient is lying in bed. He is barely arousable. Blood pressure is 136/68, heart rate 80 per minute. He is afebrile. Examination of the heart S1, S2. Examination lungs bilateral breath sounds are heard. Abdomen is soft, nontender. Examination lower extremity shows no evidence of edema. CHIEF COOK exam cannot be performed. LAB: Show sodium 131, potassium 5.0, CO2 is 15, BUN 101, serum creatinine 5.8, hemoglobin 8.9 g/dL, white cell count of 32. Random vancomycin level was 9.4. ASSESSMENT: 1. Acute kidney injury, most likely acute tubular necrosis, currently nonoliguric. The patient does have proteinuria. I will send out serologies as well. At this time he is uremic. There has been no improvement in renal function with IV fluids since yesterday and I have discussed renal replacement therapy with the patient's and she will discuss it with her sons and let us know and if they are agreeable, we will proceed with hemodialysis today and then repeat again in a.m. I have also advised her that this is temporary and they can always stop if they do not want to continue with renal replacement therapy if the renal function does not recover. Continue with indwelling Aceves catheter for now. 2. Elevated white count, most likely from steroids. 3. Anemia. No active bleeding noted. We will check iron studies if not done recently. 4. Recent Pseudomonas pneumonia status post antibiotics. 5. Recent acute kidney injury during last admission with serum creatinine at 1.7-1.8 mg/dL from last admission. Latest labs on 03/29/2017. 6. Metabolic acidosis secondary to renal failure. Expect improvement with dialysis. PLAN: 1. Proceed with dialysis if family is agreeable. 2. Check baseline serologies. 3. Check iron studies. MMODL / IJN: [id number] /
[2017-04-07] MEDS ORDERED: LIDOCAINE 2% INJ 20 MG/ML SQ ONE (15:47)
[2017-04-07] MEDS ORDERED: SODIUM CHLORIDE 0.9% 1,000 ML IV ONE (15:51)
[2017-04-07] MEDS ORDERED: ATROPINE OPHTH SOLN 1% 5ML BTL SUBLINGUAL PRN (16:39)
[2017-04-07] MEDS ORDERED: SCOPOLAMINE 1.5MG/72HR PATCH TRANSDERM PRN (16:39)
[2017-04-07] MEDS ORDERED: MORPHINE SULFATE 4 MG/ML SYRINGE IV PRN ×2 (16:39)
[2017-04-07] MEDS ORDERED: MORPHINE SULFATE (100 MG/2 ML) 100 MG in SODIUM CHLORIDE 0.9% 100 ML IV SCH (16:45)
[2017-04-07 16:46] VITALS: BP 44/28; PULSE 0
--- NOTE | 2017-04-07 17:03 | CONS ---
CONSULTATION I was consulted for urgent dialysis catheter placement. His BUN and creatinine are high. Creatinine is 5.8. Patient is not arousable. His blood pressure is 60/40. The patient has history of Pseudomonas pneumonia. Also patient has history high white cell count, metabolic acidosis. PHYSICAL EXAMINATION: On examination, the neck is supple. First and second sounds present. Lungs had bilateral sounds with some crackles. Abdomen is soft. Vascular examination: Femoral pulses are present. LAB FINDINGS: Sodium is 131, potassium is 5. CO2 is 15, BUN 101 and creatinine 5.8. PLAN: Placement of the dialysis catheter. Risks and complication of bleeding, infection, thrombosis have been discussed. Since patient is very hypertensive we will place a temporary catheter. If he improved, then we will put in permanent. MMODL / IJN: [id number] /
--- NOTE | 2017-04-07 17:12 | PCN ---
PROCEDURE NOTE PREOP DIAGNOSIS: Acute on chronic renal failure. PROCEDURE: Ultrasound-guided 20 cm right femoral catheter placed. DESCRIPTION OF PROCEDURE: Patient was brought to the manager cath lab. Right groin was prepped and draped in the usual sterile manner. 1% lidocaine infiltrated. Ultrasound-guided micropuncture introducer into the right femoral vein. Micropuncture guide was passed. 4-[place] dilator was advanced. Then we passed a regular guidewire, which was parked in the vena cava. After that, dilator was advanced on top of the guidewire. Then, we placed 20 cm dialysis catheter. Flushed with heparin saline and hep-locked. The patient tolerated the procedure well. MMODL / IJN: [id number] /
--- NOTE | 2017-04-08 08:10 | IR ---
EXAMINATION TYPE: IR cvc insert non tunneled DATE OF EXAM: 04/07/2017 COMPARISON: NONE HISTORY: Renal failure Fluoroscopy support supplied to the referring clinician. See dictated report from vascular surgery, 0.6 minutes fluoroscopy time, 133 intraoperative C-arm images document the procedure
[2017-04-08] MEDS ORDERED: PANTOPRAZOLE 40 MG/10 ML VIAL IVP SCH (09:00)
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
== END 2017-04-07 19:03 | disposition expired | DRG 682 ==
LOC: EC 12:13 → 6SEL 15:49 → 6ICU 04-07 15:54
PROVIDERS: ADMIT Internal Medicine; ATTEND Internal Medicine
PROC: 06HM33Z Insertion of Infusion Device into Right Femoral Vein, Percutaneous Approach (ICD-10-PCS; principal; 2017-04-07 15:28)
DX: N17.0 Acute kidney failure with tubular necrosis (principal); G93.41 Metabolic encephalopathy; E87.2 Acidosis; R18.8 Other ascites; I13.0 Hypertensive heart and chronic kidney disease with heart failure and stage 1 through stage 4 chronic kidney disease, or unspecified chronic kidney disease; I50.32 Chronic diastolic (congestive) heart failure; E87.1 Hypo-osmolality and hyponatremia; H33.20 Serous retinal detachment, unspecified eye; J98.11 Atelectasis; N13.8 Other obstructive and reflux uropathy; E11.40 Type 2 diabetes mellitus with diabetic neuropathy, unspecified; L89.152 Pressure ulcer of sacral region, stage 2; E11.22 Type 2 diabetes mellitus with diabetic chronic kidney disease; E78.5 Hyperlipidemia, unspecified; E86.0 Dehydration; N18.9 Chronic kidney disease, unspecified; G25.81 Restless legs syndrome; G47.33 Obstructive sleep apnea (adult) (pediatric); H54.8 Legal blindness, as defined in USA; H91.10 Presbycusis, unspecified ear; I25.10 Atherosclerotic heart disease of native coronary artery without angina pectoris; I25.5 Ischemic cardiomyopathy; I27.29 Other secondary pulmonary hypertension; I27.81 Cor pulmonale (chronic); J32.9 Chronic sinusitis, unspecified; K21.9 Gastro-esophageal reflux disease without esophagitis; K80.20 Calculus of gallbladder without cholecystitis without obstruction; M06.9 Rheumatoid arthritis, unspecified; N28.1 Cyst of kidney, acquired; N32.0 Bladder-neck obstruction; N40.1 Benign prostatic hyperplasia with lower urinary tract symptoms; T50.2X5A Adverse effect of carbonic-anhydrase inhibitors, benzothiadiazides and other diuretics, initial encounter; M06.4 Inflammatory polyarthropathy; R29.6 Repeated falls; R19.7 Diarrhea, unspecified; R26.9 Unspecified abnormalities of gait and mobility; M19.90 Unspecified osteoarthritis, unspecified site; J44.9 Chronic obstructive pulmonary disease, unspecified; D72.829 Elevated white blood cell count, unspecified; R33.8 Other retention of urine; D63.8 Anemia in other chronic diseases classified elsewhere; R05 Cough; I48.0 Paroxysmal atrial fibrillation; N20.0 Calculus of kidney; I69.998 Other sequelae following unspecified cerebrovascular disease; H53.9 Unspecified visual disturbance; Z79.02 Long term (current) use of antithrombotics/antiplatelets; Z79.4 Long term (current) use of insulin; Z79.82 Long term (current) use of aspirin; Z79.899 Other long term (current) drug therapy; Z88.5 Allergy status to narcotic agent; Z97.0 Presence of artificial eye; Z96.611 Presence of right artificial shoulder joint; Z95.5 Presence of coronary angioplasty implant and graft; Z87.891 Personal history of nicotine dependence; Z87.442 Personal history of urinary calculi; Z82.49 Family history of ischemic heart disease and other diseases of the circulatory system
CPT/HCPCS: 36415; 36556; 71010; 76770; 76937; 77001; 80048; 80053; 80202; 81001; 82550; 82553; 83540; 83605; 83735; 84100; 84484; 85025; 85027; 85610; 85730; 87040; 93005; 94640; 96361; 96365; 96366; 99285